=== PATIENT | female | born 1990 | race Caucasian/White ===

== ENCOUNTER → 2016-11-27 | Outpatient (CLI) | payer BC ==
--- NOTE | 2016-11-27 08:13 | DIAGNOSTIC IMAGING REPORT ---
(RENAL)RETROPERITON COMP CLINICAL HISTORY: 26 years-old Female presenting with Q63.9 Kidney anomaly, congenital. TECHNIQUE: Real-time grayscale and limited color Doppler ultrasound imaging of the kidneys and bladder was performed. COMPARISON: None. FINDINGS: The right and left renal moieties are fused across the midline. Overall symmetry of renal parenchyma and equally distributed on both sides of the midline, most consistent with horseshoe kidney configuration and crossed fused renal ectopia considered less likely. Normal perfusion of renal parenchyma on color Doppler. The kidney overall measures 11.9 cm in maximal sagittal dimension. No hydronephrosis. No convincing evidence of renal calculi. Bladder: No bladder wall thickening. Bilateral ureteral jets present. Other: None. IMPRESSION: 1. Findings most consistent with horseshoe kidney. No obstruction or renal calculi. Electronically signed by: Jovanny Christopher M.D. 11/27/2016 8:12 AM Dictated Date/Time: 11/27/2016 8:09 AM
== END | disposition home or self-care (01) ==
LOC: C.ULTR 07:40
PROVIDERS: ATTEND Obstetrics & Gynecology
DX: Q63.9 Congenital malformation of kidney, unspecified (principal)

== ENCOUNTER 2019-05-23 20:31 | Inpatient (IN) ==
[2019-05-23] MEDS ORDERED: BETAMETH SOD PHOS/ACETATE IA 6 MG/ML IM STA (20:46)
[2019-05-23 21:54] LABS: Hemoglobin 12.7 g/dL (12.0-16.0); Mean Corpuscular Hemoglobin 32.3 pg (25-34); Mean Corpuscular Hgb Conc 35.3 g/dL (32-36); Mean Corpuscular Volume 91.6 fL (80-100); Platelet Count 151 K/uL (130-400); RDW Coefficient of Variation 11.5 % (11.5-14.5); RDW Standard Deviation 38.8 fL (36.4-46.3); Red Blood Count 3.93 M/uL (4.2-5.4); White Blood Count 6.85 K/uL (4.8-10.8)
[2019-05-23 22:08] LABS: Albumin Level 2.1 gm/dl (3.4-5.0); BUN Creatinine Ratio 22.1 (10-20); Calcium 8.2 mg/dl (8.5-10.1); Creatinine Clr Calc Pharmacy 86.2 ml/min; Est GFR (African American) 88.2; Est GFR (Non-African American) 76.1; Potassium 3.7 mmol/L (3.5-5.1)
[2019-05-23 22:14] LABS: Albumin Globulin Ratio 0.6 (0.9-2); Bilirubin,Total 0.2 mg/dl (0.2-1); Globulin 3.5 gm/dl (2.5-4.0); Total Protein 5.6 gm/dl (6.4-8.2)
[2019-05-23] MEDS ORDERED: OXYTOCIN 30 UNITS/500 ML BAG IV PRN ×2 (22:35→23:14)
[2019-05-23] MEDS ORDERED: LABETALOL HCL IV 5 MG/ML 20ML IV STA ×2 (22:35→23:14)
[2019-05-23] MEDS ORDERED: DULOXETINE HCL 60 MG CAP PO STA (22:38)
[2019-05-23] MEDS ORDERED: MAGNESIUM SULFATE 4GM / WTR 100 ML BAG IV ONE (23:05)
--- NOTE | 2019-05-23 23:05 | History & Physical Report ---
Date of Service May 23, 2019 Assessment & Plan (1) Severe preeclampsia: (2) Uterine anomaly: Patient was initially an observation patient and her initial bps were elevated such that I suspected a diagnosis ultimately of mild preeclampsia. However will taking bps in appropriate position and rechecking bps with manual cuff, she clearly has bps that meet severe criteria and I recommend induction. Patient needs anti-htn medication now. 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 Still, i explained that her bps really require immediate attention and she agreed. I explained use of magnesium to decrease seizure threshold and use of pitocin for labor. I need to check her cervix to make induction plan. I reviewed her labs with her and her lfts, plts are normal. Her creat is 1. She is digesting information I have given her and I will return to room after labetalol given to examine her. She did receive betamethasone earlier this evening. Tried to answer her and spouse questions to the best of my ability. She will be admitted for rec induction. History of Present Illness Chief Complaint: asked to come to L&D for evaluation Primary Care Provider: Gavi Ernandez MD 28yo at 36 0/7 wks ega presents to L&D with above cc. I was called by my partner about 5pm today due to patient situation. She was seen for routine ob appt earlier today in office with only complaint of increased swelling in hands and legs. Her bp was normal but her urine dipstick for protein was +1. She had +1 edema and an u/s that showed EFW 10% (AC 21%). She had the u/s done due to arcuate uterus for size and positioning. She has a congenital uterine anomaly and horseshoe kidney. Her urine protein to creat ratio was 6.8, with creatinine of 0.9 and normal platelets and lfts. For the growth us parameters a doppler, dvp and nst were done and all were normal. My colleague had received the lab results right at 5pm and upon discussion we opted to call [facility] for curbside consult regarding these confusing results. When I did talk to [facility], they agreed the results were confusing and recommended patient come in for observation with serial bps, steroids and 24hr urine collection. I called the patient and explained that I rec she come to L&D for further evaluation of her findings earlier today and she agreed. She continues to deny CUNHA or visual change, no ruq pain. She does complain of swelling. Per office note pt was 1cm in office PNC c/b 1. anxiety, ocd on cymbalta 2. h/o CT infecion in past 3. Congenital uterine and kidney anomaly 4. SGA fetus (not quite IUGR) PNL rh pos, ri, gbs pending(taken today) OBH: g1 GYNH: h/o CT in past, nl paps, uterine anomaly as noted PMH: anxiety/OCD PSH: wisdom teeth SH: no tob/etoh/drugs FH: kojo anomaly in mother as noted. Allergies Allergy/AdvReac Type Severity Reaction Status Date / Time amoxicillin [From Amoxil] Allergy Rash Verified 05/23/19 21:01 Penicillins Allergy Rash Verified 05/23/19 21:01 Home Medications Home Medications Medication Instructions Recorded Confirmed Type calcium-vitamin D3-vitamin K 1 PO 11/25/18 05/23/19 History duloxetine 60 mg capsule,delayed 60 mg PO .TAKE 1 CAPSULE DAILY #90 11/25/18 05/23/19 History release cap prenat.vits,stephanie,bpk-nson-hfcva 1 tab PO DAILY 11/25/18 05/23/19 History Patient History Medical History (Updated 05/23/19 @ 23:00 by Gricelda Alcantara MD, FACOG) Anxiety History of OCD (obsessive compulsive disorder) Hx of chlamydia infection Kidney anomaly, congenital Horseshoe Uterine anomaly Arcuate Surgical History S/P wisdom tooth extraction Social History marital status: Feels Safe at Home: Yes Safety Concerns: Feels Safe At This Time Smoking Status: Never smoker Hx Alcohol Use: No Hx Substance Use: No Review of Systems no fever no abdominal pain and no change in stools no abnormal vaginal bleeding + swelling no headache(s) Physical Exam Constitutional: WD/WN, vitals as above well developed, well nourished and healthy appearing; no acute distress Respiratory: normal respiratory effort, lungs clear to auscultation Cardiovascular: Rate/Rhythm: regular rate and regular rhythm Gastrointestinal (Abdomen): Percussion/Palpation: abdomen soft (gravid, no ruq or epig tenderness); abdomen nontender Musculoskeletal: +1-2 peripheral edema. Neurologic: dtrs patellar +2, no clonus Psychiatric: A+Ox3, euthymic affect Genitourinary: OB Exam Monitor Tracing: + external FHT monitor used (135 mod variability), + external uterine monitor used (irreg), + category I and + normal FHT variability Results & Data Vital Signs (Past 12 Hours) Vital Signs Temp Pulse Resp BP 05/23/19 22:32 69 189/106 H 05/23/19 22:18 72 160/104 H 05/23/19 22:02 70 163/100 H 05/23/19 21:27 70 154/100 H 05/23/19 21:26 66 175/99 H 05/23/19 20:52 69 158/88 H 05/23/19 20:42 98.1 F 18 05/23/19 20:37 74 145/93 H Coding Level of Care Code None Diagnoses Severe preeclampsia O14.10 Uterine anomaly Q51.9
[2019-05-23] MEDS: LACTATED RINGER'S 1,000 ML IV PRN (23:51)
[2019-05-23] MEDS: MAGNESIUM SULFATE / WTR 40 GM/1,000 ML BAG IV SCH (23:52)
--- NOTE | 2019-05-24 01:01 | Labor Progress Brief Note ---
Date of Service May 24, 2019 Subjective patient denies complaints. she is agreeable to proceed with mckenzie ripening balloon. Assessment & Plan (1) Severe preeclampsia: (2) Encounter for induction of labor: attempt at mckenzie balloon but the bleeding was too significant. removed. rec proceeding with pitocin. magnesium infusing. pt had 2 doses iv labetalol and bps remaining below severe parameters. will monitor. nursing monitored pads james taylor i attended delivery and no further bleeding noted. Physical Exam Constitutional: WD/WN, vitals as above Genitourinary: OB Exam Monitor Tracing: + external FHT monitor used (130 mod variability), + external uterine monitor used (none), + category I and + normal FHT variability PROCEDURE: spec placed, ring forcep to ant lip, mckenzie through os easily, balloon inflated. spec removed. large amount maroon and red blood from catheter noted. balloon deflated and catheter removed. sve no change. spec placed again and no active bleeding. Results & Data Vital Signs (Past 12 Hours) Vital Signs Temp Pulse Resp BP Pulse Ox 05/24/19 00:54 73 98 05/24/19 00:49 69 98 05/24/19 00:45 18 05/24/19 00:44 72 97 05/24/19 00:43 68 145/91 H 05/24/19 00:39 68 98 05/24/19 00:38 68 146/89 H 05/24/19 00:34 79 97 05/24/19 00:33 67 139/83 05/24/19 00:30 18 05/24/19 00:29 67 155/91 H 05/24/19 00:24 69 152/92 H 05/24/19 00:18 65 160/98 H 05/24/19 00:17 68 169/100 H 05/24/19 00:15 75 18 174/103 H 05/24/19 00:08 74 178/107 H 05/24/19 00:04 72 166/102 H 05/24/19 00:00 18 05/23/19 23:59 73 143/93 H 05/23/19 23:53 73 150/93 H 05/23/19 23:48 76 156/91 H 05/23/19 23:45 18 05/23/19 23:44 76 142/85 H 05/23/19 23:39 69 144/85 H 05/23/19 23:33 76 146/85 H 05/23/19 23:28 74 151/97 H 05/23/19 23:23 68 147/93 H 05/23/19 23:16 61 183/100 H 05/23/19 23:09 70 168/105 H 05/23/19 23:03 78 173/106 H 05/23/19 22:58 74 153/95 H 05/23/19 22:55 75 174/107 H 05/23/19 22:46 74 189/106 H 05/23/19 22:32 69 189/106 H 05/23/19 22:18 72 160/104 H 05/23/19 22:02 70 163/100 H 05/23/19 21:27 70 154/100 H 05/23/19 21:26 66 175/99 H 05/23/19 20:52 69 158/88 H 05/23/19 20:42 98.1 F 18 05/23/19 20:37 74 145/93 H Coding Level of Care Code None Diagnoses Severe preeclampsia O14.10 Encounter for induction of labor Z34.90
[2019-05-24] MEDS ORDERED: LABETALOL HCL IV 5 MG/ML 20ML IV STA ×3 (04:37→10:51)
[2019-05-24] MEDS ORDERED: LABETALOL HCL IV 5 MG/ML 20ML IV ONE (04:40)
[2019-05-24 07:16] LABS: Hemoglobin 13.1 g/dL (12.0-16.0); Mean Corpuscular Hemoglobin 33.4 pg (25-34); Mean Corpuscular Hgb Conc 36.4 g/dL (32-36); Mean Corpuscular Volume 91.8 fL (80-100); Mean Platelet Volume 11.6 fL (7.4-10.4); Platelet Count 142 K/uL (130-400); RDW Coefficient of Variation 11.8 % (11.5-14.5); RDW Standard Deviation 39.7 fL (36.4-46.3); Red Blood Count 3.92 M/uL (4.2-5.4); White Blood Count 6.53 K/uL (4.8-10.8)
[2019-05-24 07:30] LABS: INR < 0.8 (0.9-1.1); Partial Thromboplastin Time 27.1 Seconds (21.0-31.0); Prothrombin Time < 8.7 Seconds (9.0-12.0)
[2019-05-24 08:00] LABS: Alanine Aminotransferase 26 U/L (12-78); Albumin Level 2.2 gm/dl (3.4-5.0); Alkaline Phosphatase 208 U/L (45-117); Aspartate Aminotransferase 36 U/L (15-37); Bilirubin Direct < 0.1 mg/dl (0-0.2); Bilirubin,Total 0.1 mg/dl (0.2-1); Creatinine Clr Calc Pharmacy 143.2 ml/min; Est GFR (African American) 93.8; Est GFR (Non-African American) 80.9; Magnesium Therapeutic L&D Only 6.2 mg/dL (4.0-8.0); Total Protein 5.8 gm/dl (6.4-8.2)
[2019-05-24] MEDS: CEFAZOLIN 2000MG 2,000 MG/15 ML SYR IV SCH ×2 (08:17→20:34)
--- NOTE | 2019-05-24 08:29 | Labor Progress Brief Note ---
Date of Service May 24, 2019 Subjective Reason For Note: Routine Evaluation denies pain, no n/v/ruq pain/epig pain. no mera. nausea better now that bp back up to her baseline. feels some ctx. Assessment & Plan (1) Severe preeclampsia: (2) Encounter for induction of labor: c/w pitocin. labs stable. urine output 300cc about every 2hr on bedpan. BPs labile. FHTs categ 1. Consider exam and arom. Kefzol infusing for gbs unknown. Aware I am leaving this am and will be discussing her care with Dr. Gomez. Physical Exam Constitutional: WD/WN, vitals as above Respiratory: normal respiratory effort, lungs clear to auscultation Cardiovascular: Rate/Rhythm: regular rate and regular rhythm Gastrointestinal (Abdomen): Percussion/Palpation: abdomen soft (gravid); abdomen nontender no ruq or epig tenderness Musculoskeletal: +2 edema Neurologic: DTRs +2, no clonus Genitourinary: OB Exam Monitor Tracing: + external FHT monitor used (120 mod variability), + external uterine monitor used (q2-3), + category I and + normal FHT variability Results & Data Vital Signs (Past 12 Hours) Vital Signs Temp Pulse Resp BP Pulse Ox 05/24/19 08:20 74 99 05/24/19 08:15 74 100 05/24/19 08:13 71 170/96 H 05/24/19 08:10 74 100 05/24/19 08:06 75 91 05/24/19 08:05 74 100 05/24/19 08:00 80 20 100 05/24/19 07:57 77 151/90 H 05/24/19 07:55 81 97 05/24/19 07:50 74 95 05/24/19 07:45 79 94 05/24/19 07:42 74 155/86 H 05/24/19 07:41 79 93 05/24/19 07:40 79 97 05/24/19 07:35 74 99 05/24/19 07:30 80 98 05/24/19 07:27 81 155/91 H 05/24/19 07:25 72 98 05/24/19 07:20 74 98 05/24/19 07:15 73 98 05/24/19 07:11 80 150/89 H 01/25/20 07:10 75 98 05/24/19 07:07 71 149/83 H 05/24/19 07:05 97.7 F 72 20 138/85 98 05/24/19 07:00 75 98 05/24/19 06:57 72 157/90 H 20 06:55 73 97 05/24/19 06:51 72 146/83 H 20 06:50 71 97 20 06:47 71 150/87 H 05/24/19 06:45 74 97 05/24/19 06:41 72 155/86 H 20 06:40 73 97 05/24/19 06:38 73 151/88 H 05/24/19 06:35 75 96 05/24/19 06:31 71 148/83 H 05/24/19 06:30 72 18 96 05/24/19 06:26 71 153/85 H 05/24/19 06:25 70 96 05/24/19 06:21 70 142/82 H 05/24/19 06:20 70 96 05/24/19 06:16 69 148/87 H 05/24/19 06:15 71 97 05/24/19 06:13 71 142/85 H 05/24/19 06:10 72 96 05/24/19 06:06 70 144/86 H 05/24/19 06:05 70 97 05/24/19 06:02 67 136/79 05/24/19 06:00 68 96 05/24/19 05:56 70 144/92 H 05/24/19 05:55 70 97 05/24/19 05:52 69 145/93 H 05/24/19 05:50 69 97 20 05:45 66 126/76 96 20 05:43 73 132/89 05/24/20 05:41 67 127/78 20 05:40 66 98 20 05:39 63 128/71 20 05:37 60 129/67 25/20 05:35 62 131/74 97 20 05:33 60 125/68 25/20 05:31 62 119/67 25/20 05:30 63 18 96 20 05:29 63 129/72 01/25/20 05:26 67 124/66 05/24/19 05:25 69 97 05/24/19 05:24 57 L 111/60 05/24/19 05:21 64 123/63 05/24/19 05:20 80 97 05/24/19 05:19 77 136/76 05/24/19 05:16 77 148/95 H 05/24/19 05:15 75 97 05/24/19 05:12 72 162/97 H 05/24/19 05:10 75 98 05/24/19 05:08 72 164/96 H 05/24/19 05:06 73 171/109 H 05/24/19 05:05 74 97 05/24/19 05:01 77 162/112 H 05/24/19 05:00 73 97 05/24/19 04:58 74 166/103 H 05/24/19 04:55 74 97 05/24/19 04:52 77 165/102 H 05/24/19 04:50 81 97 05/24/19 04:46 77 155/88 H 05/24/19 04:44 82 97 05/24/19 04:42 76 182/113 H 05/24/19 04:39 77 98 05/24/19 04:36 102 H 92 05/24/19 04:34 90 97 05/24/19 04:32 80 176/103 H 05/24/19 04:30 97.5 F L 18 05/24/19 04:29 82 97 05/24/19 04:24 76 97 05/24/19 04:19 75 98 05/24/19 04:14 78 98 05/24/19 04:09 77 98 05/24/19 04:06 75 171/98 H 05/24/19 04:04 75 98 05/24/19 03:59 77 98 05/24/19 03:54 79 97 05/24/19 03:49 79 97 05/24/19 03:44 74 98 05/24/19 03:39 81 97 05/24/19 03:36 74 164/93 H 05/24/19 03:34 77 97 05/24/19 03:30 18 05/24/19 03:29 84 97 05/24/19 03:24 77 97 05/24/19 03:19 80 97 01/25/20 03:14 76 97 01/25/20 03:09 76 97 20 03:04 81 155/82 H 97 05/24/19 03:00 18 05/24/19 02:59 76 96 20 02:54 83 96 20 02:49 77 138/81 96 20 02:44 76 97 20 02:39 77 97 20 02:34 77 143/81 H 97 05/24/19 02:30 18 20 02:29 79 97 20 02:24 77 98 20 02:19 72 98 20 02:18 70 139/79 20 02:16 75 162/100 H 05/24/19 02:14 75 97 05/24/19 02:09 83 97 05/24/19 02:04 78 97 20 01:59 85 98 20 01:54 77 97 05/24/19 01:49 74 97 05/24/19 01:45 70 137/81 20 01:44 70 97 20 01:39 79 97 05/24/20 01:34 74 98 20 01:30 98.1 F 05/24/19 01:29 73 98 20 01:24 72 98 05/24/20 01:19 73 98 20 01:15 69 149/95 H 20 01:14 73 98 05/24/20 01:09 73 98 20 01:04 77 97 05/24/19 01:00 18 20 00:59 74 97 20 00:54 73 98 25/20 00:49 69 98 25/20 00:45 18 05/24/20 00:44 72 97 05/24/20 00:43 68 145/91 H 20 00:39 68 98 25/20 00:38 68 146/89 H 20 00:34 79 97 25/20 00:33 67 139/83 25/20 00:30 18 05/24/20 00:29 67 155/91 H 20 00:24 69 152/92 H 05/24/19 00:18 65 160/98 H 05/24/19 00:17 68 169/100 H 05/24/19 00:15 75 18 174/103 H 05/24/19 00:08 74 178/107 H 05/24/19 00:04 72 166/102 H 05/24/19 00:00 18 05/23/19 23:59 73 143/93 H 05/23/19 23:53 73 150/93 H 05/23/19 23:48 76 156/91 H 05/23/19 23:45 18 05/23/19 23:44 76 142/85 H 05/23/19 23:39 69 144/85 H 05/23/19 23:33 76 146/85 H 05/23/19 23:28 74 151/97 H 05/23/19 23:23 68 147/93 H 05/23/19 23:16 61 183/100 H 05/23/19 23:09 70 168/105 H 05/23/19 23:03 78 173/106 H 05/23/19 22:58 74 153/95 H 05/23/19 22:55 75 174/107 H 05/23/19 22:46 74 189/106 H 05/23/19 22:32 69 189/106 H 05/23/19 22:18 72 160/104 H 05/23/19 22:02 70 163/100 H 05/23/19 21:27 70 154/100 H 05/23/19 21:26 66 175/99 H 05/23/19 20:52 69 158/88 H 05/23/19 20:42 98.1 F 18 05/23/19 20:37 74 145/93 H Coding Level of Care Code None Diagnoses Severe preeclampsia O14.10 Encounter for induction of labor Z34.90
--- NOTE | 2019-05-24 09:24 | Labor Progress Brief Note ---
Date of Service May 24, 2019 Subjective Reason For Note: Other (Change of shift) The patient is a 28-year-old 1 para 0 with an EDC of 20 June at 36+ weeks gestational age who was admitted for induction for preeclampsia with severe features. The patient was noted to have elevated protein in her urine. Blood pressures on labor and delivery were consistent with severe features. Laboratory values have shown a creatinine of approximately 0.95, the remainder of her PIH labs have been within normal limits. Attempt at cervical Escudero placement resulted in vaginal bleeding and the procedure was abandoned. The patient was started on Pitocin and is also on magnesium. Assessment & Plan (1) Severe preeclampsia: Physical Exam Genitourinary: Manual OB Exam: + cervical dilation 1 cm and 2 cm, + cervical effacement 70%, + station -2 and + amniotic fluid clear (Artificial rupture of membranes, intrauterine pressure catheter placed) OB Exam Monitor Tracing: + intra-uterine pressure catheter used, + category II and + normal FHT variability Results & Data Vital Signs (Past 12 Hours) Vital Signs Temp Pulse Resp BP Pulse Ox 05/24/19 09:16 76 93 05/24/19 09:15 74 99 05/24/19 09:12 76 165/101 H 05/24/19 09:11 78 92 05/24/19 09:10 75 100 05/24/19 09:05 79 100 05/24/19 09:00 74 20 100 05/24/19 08:57 75 145/87 H 93 05/24/19 08:55 74 100 05/24/19 08:50 74 100 05/24/19 08:45 71 100 05/24/19 08:43 73 90 05/24/19 08:42 72 173/98 H 05/24/19 08:40 75 100 05/24/19 08:35 73 97 05/24/19 08:30 74 18 100 05/24/19 08:29 73 160/88 H 05/24/19 08:25 80 100 05/24/19 08:20 74 99 05/24/19 08:15 74 100 05/24/19 08:13 71 170/96 H 05/24/19 08:10 74 100 05/24/19 08:06 75 91 05/24/19 08:05 74 100 05/24/19 08:00 80 20 100 05/24/19 07:57 77 151/90 H 05/24/19 07:55 81 97 05/24/19 07:50 74 95 05/24/19 07:45 79 94 05/24/19 07:42 74 155/86 H 05/24/19 07:41 79 93 05/24/19 07:40 79 97 05/24/19 07:35 74 99 05/24/19 07:30 80 98 05/24/19 07:27 81 155/91 H 05/24/19 07:25 72 98 05/24/19 07:20 74 98 05/24/19 07:15 73 98 05/24/19 07:11 80 150/89 H 05/24/19 07:10 75 98 05/24/19 07:07 71 149/83 H 05/24/19 07:05 97.7 F 72 20 138/85 98 05/24/19 07:00 75 98 05/24/19 06:57 72 157/90 H 05/24/19 06:55 73 97 05/24/19 06:51 72 146/83 H 05/24/19 06:50 71 97 05/24/19 06:47 71 150/87 H 05/24/19 06:45 74 97 05/24/19 06:41 72 155/86 H 05/24/19 06:40 73 97 05/24/19 06:38 73 151/88 H 05/24/19 06:35 75 96 05/24/19 06:31 71 148/83 H 05/24/19 06:30 72 18 96 05/24/19 06:26 71 153/85 H 05/24/19 06:25 70 96 05/24/19 06:21 70 142/82 H 05/24/19 06:20 70 96 05/24/19 06:16 69 148/87 H 05/24/19 06:15 71 97 05/24/19 06:13 71 142/85 H 05/24/19 06:10 72 96 05/24/19 06:06 70 144/86 H 05/24/19 06:05 70 97 05/24/19 06:02 67 136/79 05/24/19 06:00 68 96 05/24/19 05:56 70 144/92 H 05/24/19 05:55 70 97 05/24/19 05:52 69 145/93 H 05/24/19 05:50 69 97 05/24/19 05:45 66 126/76 96 05/24/19 05:43 73 132/89 05/24/19 05:41 67 127/78 05/24/19 05:40 66 98 05/24/19 05:39 63 128/71 05/24/19 05:37 60 129/67 05/24/19 05:35 62 131/74 97 05/24/19 05:33 60 125/68 05/24/19 05:31 62 119/67 05/24/19 05:30 63 18 96 05/24/19 05:29 63 129/72 05/24/19 05:26 67 124/66 05/24/19 05:25 69 97 05/24/19 05:24 57 L 111/60 05/24/19 05:21 64 123/63 05/24/19 05:20 80 97 05/24/19 05:19 77 136/76 05/24/19 05:16 77 148/95 H 05/24/19 05:15 75 97 05/24/19 05:12 72 162/97 H 05/24/19 05:10 75 98 05/24/19 05:08 72 164/96 H 05/24/19 05:06 73 171/109 H 05/24/19 05:05 74 97 05/24/19 05:01 77 162/112 H 05/24/19 05:00 73 97 05/24/19 04:58 74 166/103 H 05/24/19 04:55 74 97 05/24/19 04:52 77 165/102 H 05/24/19 04:50 81 97 05/24/19 04:46 77 155/88 H 05/24/19 04:44 82 97 05/24/19 04:42 76 182/113 H 05/24/19 04:39 77 98 05/24/19 04:36 102 H 92 05/24/19 04:34 90 97 05/24/19 04:32 80 176/103 H 05/24/19 04:30 97.5 F L 18 05/24/19 04:29 82 97 05/24/19 04:24 76 97 05/24/19 04:19 75 98 05/24/19 04:14 78 98 05/24/19 04:09 77 98 05/24/19 04:06 75 171/98 H 05/24/19 04:04 75 98 05/24/19 03:59 77 98 05/24/19 03:54 79 97 05/24/19 03:49 79 97 05/24/19 03:44 74 98 05/24/19 03:39 81 97 05/24/19 03:36 74 164/93 H 05/24/19 03:34 77 97 05/24/19 03:30 18 05/24/19 03:29 84 97 05/24/19 03:24 77 97 05/24/19 03:19 80 97 05/24/19 03:14 76 97 05/24/19 03:09 76 97 05/24/19 03:04 81 155/82 H 97 05/24/19 03:00 18 05/24/19 02:59 76 96 05/24/19 02:54 83 96 05/24/19 02:49 77 138/81 96 05/24/19 02:44 76 97 05/24/19 02:39 77 97 05/24/19 02:34 77 143/81 H 97 05/24/19 02:30 18 05/24/19 02:29 79 97 05/24/19 02:24 77 98 05/24/19 02:19 72 98 05/24/19 02:18 70 139/79 05/24/19 02:16 75 162/100 H 05/24/19 02:14 75 97 05/24/19 02:09 83 97 05/24/19 02:04 78 97 05/24/19 01:59 85 98 05/24/19 01:54 77 97 05/24/19 01:49 74 97 05/24/19 01:45 70 137/81 05/24/19 01:44 70 97 05/24/19 01:39 79 97 05/24/19 01:34 74 98 05/24/19 01:30 98.1 F 05/24/19 01:29 73 98 05/24/19 01:24 72 98 05/24/19 01:19 73 98 05/24/19 01:15 69 149/95 H 05/24/19 01:14 73 98 01/25/20 01:09 73 98 05/24/19 01:04 77 97 05/24/19 01:00 18 05/24/19 00:59 74 97 05/24/19 00:54 73 98 05/24/19 00:49 69 98 05/24/19 00:45 18 05/24/19 00:44 72 97 05/24/19 00:43 68 145/91 H 05/24/19 00:39 68 98 05/24/19 00:38 68 146/89 H 05/24/19 00:34 79 97 05/24/19 00:33 67 139/83 05/24/19 00:30 18 05/24/19 00:29 67 155/91 H 05/24/19 00:24 69 152/92 H 05/24/19 00:18 65 160/98 H 05/24/19 00:17 68 169/100 H 05/24/19 00:15 75 18 174/103 H 05/24/19 00:08 74 178/107 H 05/24/19 00:04 72 166/102 H 05/24/19 00:00 18 05/23/19 23:59 73 143/93 H 05/23/19 23:53 73 150/93 H 05/23/19 23:48 76 156/91 H 05/23/19 23:45 18 05/23/19 23:44 76 142/85 H 05/23/19 23:39 69 144/85 H 05/23/19 23:33 76 146/85 H 05/23/19 23:28 74 151/97 H 05/23/19 23:23 68 147/93 H 05/23/19 23:16 61 183/100 H 05/23/19 23:09 70 168/105 H 05/23/19 23:03 78 173/106 H 05/23/19 22:58 74 153/95 H 05/23/19 22:55 75 174/107 H 05/23/19 22:46 74 189/106 H 05/23/19 22:32 69 189/106 H 05/23/19 22:18 72 160/104 H 05/23/19 22:02 70 163/100 H 05/23/19 21:27 70 154/100 H 05/23/19 21:26 66 175/99 H Supervising Physician Co-Signing Physician Notes -Indications for induction reviewed with patient and her -Artificial rupture of membranes for clear fluid, intrauterine pressure catheter placed to monitor contractions -We will check serial magnesium levels to ensure therapeutic levels but no toxicity -Serial CBCs ordered to monitor platelets -All questions answered of the patient -Working for vaginal delivery Coding Level of Care Code None Diagnoses Severe preeclampsia O14.10
[2019-05-24] MEDS ORDERED: BUPIVACAINE 0.25% 30 ML VIAL ONE (10:57)
[2019-05-24] MEDS ORDERED: ePHEDrine sulfate 50 MG/ML AMP ONE (10:57)
[2019-05-24] MEDS ORDERED: fentaNYL citrate 100 MCG/2 ML VIAL ONE (10:57)
[2019-05-24] MEDS ORDERED: fentaNYL 2MCG/ML ROPIV 1.25MG/ML 100 ML BAG EPI ONE (10:57)
--- NOTE | 2019-05-24 11:02 | Labor Progress Brief Note ---
Date of Service May 24, 2019 Subjective Reason For Note: Requested By RN Elevated BP's with ctx's Assessment & Plan (1) Severe preeclampsia: - Tracing Cat II - pt uncomfortable with ctx's - BP trending up - will place epidural, then re-access BP - all questions answered of patient Results & Data Vital Signs (Past 12 Hours) Vital Signs Temp Pulse Resp BP Pulse Ox 05/24/19 10:57 77 157/96 H 100 05/24/19 10:52 77 97 05/24/19 10:47 72 100 05/24/19 10:43 71 167/96 H 05/24/19 10:42 70 100 05/24/19 10:37 70 100 05/24/19 10:32 73 98 05/24/19 10:30 71 20 90 05/24/19 10:27 72 178/105 H 100 05/24/19 10:22 73 100 05/24/19 10:17 73 171/96 H 100 05/24/19 10:13 71 185/110 H 05/24/19 10:12 71 100 05/24/19 10:08 72 90 05/24/19 10:05 70 100 05/24/19 10:01 70 91 05/24/19 10:00 67 20 100 05/24/19 09:57 75 142/98 H 05/24/19 09:56 81 93 05/24/19 09:55 81 97 05/24/19 09:50 69 100 05/24/19 09:45 72 100 05/24/19 09:42 72 157/90 H 05/24/19 09:40 77 100 05/24/19 09:36 76 94 05/24/19 09:35 75 98 05/24/19 09:30 73 20 100 05/24/19 09:27 71 166/93 H 05/24/19 09:25 72 100 05/24/19 09:22 74 94 05/24/19 09:20 73 98 05/24/19 09:16 76 93 05/24/19 09:15 74 99 05/24/19 09:12 76 165/101 H 05/24/19 09:11 78 92 05/24/19 09:10 75 100 05/24/19 09:05 79 100 05/24/19 09:00 74 20 100 05/24/19 08:57 75 145/87 H 93 05/24/19 08:55 74 100 05/24/19 08:50 74 100 05/24/19 08:45 71 100 05/24/19 08:43 73 90 05/24/19 08:42 72 173/98 H 05/24/19 08:40 75 100 05/24/19 08:35 73 97 05/24/19 08:30 74 18 100 05/24/19 08:29 73 160/88 H 05/24/19 08:25 80 100 05/24/19 08:20 74 99 05/24/19 08:15 74 100 05/24/19 08:13 71 170/96 H 05/24/19 08:10 74 100 05/24/19 08:06 75 91 05/24/19 08:05 74 100 05/24/19 08:00 80 20 100 05/24/19 07:57 77 151/90 H 05/24/19 07:55 81 97 05/24/19 07:50 74 95 05/24/19 07:45 79 94 05/24/19 07:42 74 155/86 H 05/24/19 07:41 79 93 05/24/19 07:40 79 97 05/24/19 07:35 74 99 05/24/19 07:30 80 98 05/24/19 07:27 81 155/91 H 05/24/19 07:25 72 98 05/24/19 07:20 74 98 05/24/19 07:15 73 98 05/24/19 07:11 80 150/89 H 05/24/19 07:10 75 98 05/24/19 07:07 71 149/83 H 05/24/19 07:05 97.7 F 72 20 138/85 98 05/24/19 07:00 75 98 05/24/19 06:57 72 157/90 H 05/24/19 06:55 73 97 05/24/19 06:51 72 146/83 H 05/24/19 06:50 71 97 05/24/19 06:47 71 150/87 H 05/24/19 06:45 74 97 20 06:41 72 155/86 H 05/24/19 06:40 73 97 05/24/19 06:38 73 151/88 H 05/24/19 06:35 75 96 05/24/19 06:31 71 148/83 H 05/24/19 06:30 72 18 96 05/24/19 06:26 71 153/85 H 05/24/19 06:25 70 96 05/24/19 06:21 70 142/82 H 05/24/19 06:20 70 96 05/24/19 06:16 69 148/87 H 05/24/19 06:15 71 97 05/24/19 06:13 71 142/85 H 05/24/19 06:10 72 96 05/24/19 06:06 70 144/86 H 05/24/19 06:05 70 97 05/24/19 06:02 67 136/79 05/24/19 06:00 68 96 05/24/19 05:56 70 144/92 H 05/24/19 05:55 70 97 05/24/19 05:52 69 145/93 H 05/24/19 05:50 69 97 05/24/19 05:45 66 126/76 96 05/24/19 05:43 73 132/89 05/24/19 05:41 67 127/78 05/24/19 05:40 66 98 05/24/19 05:39 63 128/71 05/24/19 05:37 60 129/67 05/24/19 05:35 62 131/74 97 05/24/19 05:33 60 125/68 05/24/19 05:31 62 119/67 20 05:30 63 18 96 05/24/19 05:29 63 129/72 05/24/19 05:26 67 124/66 05/24/19 05:25 69 97 05/24/19 05:24 57 L 111/60 05/24/19 05:21 64 123/63 05/24/19 05:20 80 97 05/24/19 05:19 77 136/76 05/24/19 05:16 77 148/95 H 05/24/19 05:15 75 97 05/24/19 05:12 72 162/97 H 05/24/19 05:10 75 98 05/24/19 05:08 72 164/96 H 05/24/19 05:06 73 171/109 H 05/24/19 05:05 74 97 05/24/19 05:01 77 162/112 H 05/24/19 05:00 73 97 05/24/19 04:58 74 166/103 H 05/24/19 04:55 74 97 05/24/19 04:52 77 165/102 H 05/24/19 04:50 81 97 05/24/19 04:46 77 155/88 H 05/24/19 04:44 82 97 05/24/19 04:42 76 182/113 H 05/24/19 04:39 77 98 05/24/19 04:36 102 H 92 05/24/19 04:34 90 97 05/24/19 04:32 80 176/103 H 05/24/19 04:30 97.5 F L 18 05/24/19 04:29 82 97 05/24/19 04:24 76 97 05/24/19 04:19 75 98 05/24/19 04:14 78 98 05/24/19 04:09 77 98 05/24/19 04:06 75 171/98 H 05/24/19 04:04 75 98 05/24/19 03:59 77 98 05/24/19 03:54 79 97 05/24/19 03:49 79 97 05/24/19 03:44 74 98 05/24/19 03:39 81 97 05/24/19 03:36 74 164/93 H 05/24/19 03:34 77 97 05/24/19 03:30 18 05/24/19 03:29 84 97 05/24/19 03:24 77 97 05/24/19 03:19 80 97 05/24/19 03:14 76 97 05/24/19 03:09 76 97 05/24/19 03:04 81 155/82 H 97 05/24/19 03:00 18 05/24/19 02:59 76 96 05/24/19 02:54 83 96 05/24/19 02:49 77 138/81 96 05/24/19 02:44 76 97 05/24/19 02:39 77 97 05/24/19 02:34 77 143/81 H 97 05/24/19 02:30 18 05/24/19 02:29 79 97 05/24/19 02:24 77 98 05/24/19 02:19 72 98 05/24/19 02:18 70 139/79 05/24/19 02:16 75 162/100 H 05/24/19 02:14 75 97 05/24/19 02:09 83 97 05/24/19 02:04 78 97 05/24/19 01:59 85 98 05/24/19 01:54 77 97 05/24/19 01:49 74 97 05/24/19 01:45 70 137/81 05/24/19 01:44 70 97 05/24/19 01:39 79 97 05/24/19 01:34 74 98 05/24/19 01:30 98.1 F 05/24/19 01:29 73 98 05/24/19 01:24 72 98 05/24/19 01:19 73 98 05/24/19 01:15 69 149/95 H 05/24/19 01:14 73 98 05/24/19 01:09 73 98 05/24/19 01:04 77 97 05/24/19 01:00 18 05/24/19 00:59 74 97 05/24/19 00:54 73 98 05/24/19 00:49 69 98 05/24/19 00:45 18 05/24/19 00:44 72 97 05/24/19 00:43 68 145/91 H 05/24/19 00:39 68 98 05/24/19 00:38 68 146/89 H 05/24/19 00:34 79 97 05/24/19 00:33 67 139/83 05/24/19 00:30 18 05/24/19 00:29 67 155/91 H 05/24/19 00:24 69 152/92 H 05/24/19 00:18 65 160/98 H 05/24/19 00:17 68 169/100 H 05/24/19 00:15 75 18 174/103 H 05/24/19 00:08 74 178/107 H 05/24/19 00:04 72 166/102 H 05/24/19 00:00 18 05/23/19 23:59 73 143/93 H 20 23:53 73 150/93 H 20 23:48 76 156/91 H 20 23:45 18 20 23:44 76 142/85 H 20 23:39 69 144/85 H 05/23/19 23:33 76 146/85 H 05/23/19 23:28 74 151/97 H 05/23/19 23:23 68 147/93 H 05/23/19 23:16 61 183/100 H 05/23/19 23:09 70 168/105 H 05/23/19 23:03 78 173/106 H Coding Level of Care Code None Diagnoses Severe preeclampsia O14.10
[2019-05-24] MEDS: LACTATED RINGER'S 1,000 ML IV PRN ×2 (11:08→15:29)
--- NOTE | 2019-05-24 11:10 | Anesthesiology Consultation ---
Date of Service May 24, 2019 Assessment & Plan (1) Encounter for pre-operative examination: History Height/Weight Height: 5 ft 5 in Weight: 174 kg Allergies Allergy/AdvReac Type Severity Reaction Status Date / Time amoxicillin [From Amoxil] Allergy Rash Verified 05/23/19 21:01 Penicillins Allergy Rash Verified 05/23/19 21:01 Medications Home Medications Medication Instructions Recorded Confirmed Last Taken duloxetine 60 mg capsule,delayed 60 mg PO .TAKE 1 CAPSULE DAILY #90 11/25/18 05/23/19 05/22/19 20:00 release cap prenat.vits,stephanie,[id number] 1 tab PO DAILY 11/25/18 05/23/19 05/22/19 20:00 Active Medications Generic Name Dose Route Start Last Admin Trade Name Freq PRN Reason Stop Dose Admin Lactated Ringer's 1,000 mls @ 125 mls/hr 05/23/19 22:35 05/24/19 11:08 Lr IV 05/25/19 22:34 999 mls/hr .Q8H PRN Administration L&D Protocol Protocol Magnesium Sulfate 40 gm in 1,000 mls @ 25 mls/hr 05/23/19 23:15 05/24/19 09:45 Magnesium Sulfate / Wtr IV 06/22/19 23:14 25 mls/hr .Q24H GRICELDA Infusion Oxytocin 30 units in 500 mls @ 17 mls/hr 05/23/19 23:14 05/24/19 08:20 Pitocin IV 05/25/19 23:13 1.02 units/hr .Q24H PRN 17 mls/hr Labor Induction/Augmentation Titration Protocol 1.02 UNITS/HR Cefazolin Sodium 2,000 mg in 15 mls @ 3.75 mls/min 05/24/19 05:30 05/24/19 08:17 Ancef 2000mg IV 06/03/19 05:29 3.75 mls/min Q8H GRICELDA Administration Past Medical History Medical History Anxiety History of OCD (obsessive compulsive disorder) Hx of chlamydia infection Kidney anomaly, 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
[2019-05-24 12:59] LABS: Hematocrit (blood only) 34.7 % (37-47); Hemoglobin 12.4 g/dL (12.0-16.0); Mean Corpuscular Hemoglobin 32.7 pg (25-34); Mean Corpuscular Hgb Conc 35.7 g/dL (32-36); Mean Corpuscular Volume 91.6 fL (80-100); Mean Platelet Volume 11.6 fL (7.4-10.4); Platelet Count 145 K/uL (130-400); RDW Coefficient of Variation 11.7 % (11.5-14.5); RDW Standard Deviation 39.4 fL (36.4-46.3); Red Blood Count 3.79 M/uL (4.2-5.4); White Blood Count 10.41 K/uL (4.8-10.8)
[2019-05-24] MEDS ORDERED: ONDANSETRON INJ 2 MG/ML 2 ML VIAL IV PRN (13:10)
[2019-05-24] MEDS ORDERED: NALOXONE HCL 0.4 MG/1 ML VIAL/CARP IV PRN (13:10)
[2019-05-24] MEDS ORDERED: NALOXONE HCL 1 MG in SODIUM CHLORIDE 0.9% 1000ML 1,000 ML IV PRN (13:10)
[2019-05-24] MEDS ORDERED: NALBUPHINE HCL INJ 10 MG/ML AMP IV PRN (13:10)
[2019-05-24] MEDS ORDERED: DiphenhydrAMINE HCL 50 MG/ML VIAL IV PRN (13:10)
[2019-05-24] MEDS ORDERED: fentaNYL 2MCG/ML ROPIV 1.25MG/ML 100 ML BAG EPI PRN (13:10)
[2019-05-24] MEDS ORDERED: ePHEDrine sulfate 50 MG/ML AMP IV PRN (13:10)
--- NOTE | 2019-05-24 14:00 | Labor Progress Brief Note ---
Date of Service May 24, 2019 Subjective Reason For Note: Requested By RN feeling pressure Assessment & Plan (1) Severe preeclampsia: - tracing Cat II - completely dilated - Mg level 6 - begin 2nd stage Physical Exam Genitourinary: OB Exam Monitor Tracing: + category II and + normal FHT variability Cervix: complete/ALEJANDRA/(+)2 Results & Data Vital Signs (Past 12 Hours) Vital Signs Temp Pulse Resp BP Pulse Ox 05/24/19 13:56 81 96 05/24/19 13:51 88 152/83 H 95 05/24/19 13:46 91 H 93 05/24/19 13:41 86 94 05/24/19 13:36 82 145/84 H 95 05/24/19 13:31 82 95 05/24/19 13:30 20 05/24/19 13:26 84 95 05/24/19 13:22 81 143/81 H 05/24/19 13:21 80 95 05/24/19 13:16 83 95 05/24/19 13:11 84 95 05/24/19 13:06 80 135/76 96 05/24/19 13:01 85 94 05/24/19 13:00 98.2 F 20 05/24/19 12:56 78 96 05/24/19 12:51 83 134/69 100 05/24/19 12:48 79 89 L 05/24/19 12:46 81 100 05/24/19 12:41 82 99 05/24/19 12:36 76 100 05/24/19 12:31 78 114/58 L 100 05/24/19 12:30 20 05/24/19 12:26 78 111/58 L 100 05/24/19 12:21 75 118/61 100 05/24/19 12:16 75 123/68 100 05/24/19 12:14 77 92 05/24/19 12:11 79 115/63 100 05/24/19 12:06 75 126/70 100 05/24/19 12:01 76 125/71 99 05/24/19 12:00 20 05/24/19 11:59 79 123/64 05/24/19 11:57 72 126/68 05/24/19 11:56 73 96 05/24/19 11:55 71 130/68 05/24/19 11:53 84 119/68 05/24/19 11:51 76 133/74 81 L 05/24/19 11:49 78 126/70 05/24/19 11:47 80 136/75 05/24/19 11:46 79 100 05/24/19 11:45 74 20 129/68 05/24/19 11:43 77 126/70 05/24/19 11:41 75 122/72 100 05/24/19 11:40 80 91 05/24/19 11:39 83 20 132/65 05/24/19 11:36 71 93 05/24/19 11:35 79 93 05/24/19 11:31 70 84 L 05/24/19 11:30 20 05/24/19 11:28 79 91 05/24/19 11:26 85 100 05/24/19 11:18 78 97 05/24/19 11:16 74 91 05/24/19 11:12 74 173/93 H 100 05/24/19 11:07 81 100 05/24/19 11:02 75 100 05/24/19 11:00 97.5 F L 20 05/24/19 10:57 77 157/96 H 100 05/24/19 10:52 77 97 05/24/19 10:47 72 100 05/24/19 10:43 71 167/96 H 05/24/19 10:42 70 100 05/24/19 10:37 70 100 05/24/19 10:32 73 98 05/24/19 10:30 71 20 90 05/24/19 10:27 72 178/105 H 100 05/24/19 10:22 73 100 05/24/19 10:17 73 171/96 H 100 05/24/19 10:13 71 185/110 H 05/24/19 10:12 71 100 05/24/19 10:08 72 90 05/24/19 10:05 70 100 05/24/19 10:01 70 91 05/24/19 10:00 67 20 100 05/24/19 09:57 75 142/98 H 05/24/19 09:56 81 93 05/24/19 09:55 81 97 05/24/19 09:50 69 100 05/24/19 09:45 72 100 05/24/19 09:42 72 157/90 H 05/24/19 09:40 77 100 05/24/19 09:36 76 94 05/24/19 09:35 75 98 05/24/19 09:30 73 20 100 05/24/19 09:27 71 166/93 H 05/24/19 09:25 72 100 05/24/19 09:22 74 94 05/24/19 09:20 73 98 05/24/19 09:16 76 93 05/24/19 09:15 74 99 05/24/19 09:12 76 165/101 H 05/24/19 09:11 78 92 05/24/19 09:10 75 100 05/24/19 09:05 79 100 05/24/19 09:00 74 20 100 05/24/19 08:57 75 145/87 H 93 05/24/19 08:55 74 100 05/24/19 08:50 74 100 05/24/19 08:45 71 100 05/24/19 08:43 73 90 05/24/19 08:42 72 173/98 H 05/24/19 08:40 75 100 05/24/19 08:35 73 97 05/24/19 08:30 74 18 100 05/24/19 08:29 73 160/88 H 05/24/19 08:25 80 100 05/24/19 08:20 74 99 05/24/19 08:15 74 100 05/24/19 08:13 71 170/96 H 05/24/19 08:10 74 100 05/24/19 08:06 75 91 05/24/19 08:05 74 100 05/24/19 08:00 80 20 100 05/24/19 07:57 77 151/90 H 05/24/19 07:55 81 97 05/24/19 07:50 74 95 05/24/19 07:45 79 94 05/24/19 07:42 74 155/86 H 05/24/19 07:41 79 93 05/24/19 07:40 79 97 05/24/19 07:35 74 99 05/24/19 07:30 80 98 05/24/19 07:27 81 155/91 H 05/24/19 07:25 72 98 05/24/19 07:20 74 98 05/24/19 07:15 73 98 05/24/19 07:11 80 150/89 H 05/24/19 07:10 75 98 05/24/19 07:07 71 149/83 H 05/24/19 07:05 97.7 F 72 20 138/85 98 05/24/19 07:00 75 98 05/24/19 06:57 72 157/90 H 05/24/19 06:55 73 97 05/24/19 06:51 72 146/83 H 05/24/19 06:50 71 97 05/24/19 06:47 71 150/87 H 05/24/19 06:45 74 97 05/24/19 06:41 72 155/86 H 05/24/19 06:40 73 97 05/24/19 06:38 73 151/88 H 05/24/19 06:35 75 96 05/24/19 06:31 71 148/83 H 05/24/19 06:30 72 18 96 05/24/19 06:26 71 153/85 H 05/24/19 06:25 70 96 05/24/19 06:21 70 142/82 H 05/24/19 06:20 70 96 05/24/19 06:16 69 148/87 H 05/24/19 06:15 71 97 05/24/19 06:13 71 142/85 H 05/24/19 06:10 72 96 05/24/19 06:06 70 144/86 H 05/24/19 06:05 70 97 05/24/19 06:02 67 136/79 05/24/19 06:00 68 96 05/24/19 05:56 70 144/92 H 05/24/19 05:55 70 97 05/24/19 05:52 69 145/93 H 05/24/19 05:50 69 97 05/24/19 05:45 66 126/76 96 20 05:43 73 132/89 20 05:41 67 127/78 20 05:40 66 98 20 05:39 63 128/71 20 05:37 60 129/67 05/24/20 05:35 62 131/74 97 20 05:33 60 125/68 25/20 05:31 62 119/67 20 05:30 63 18 96 20 05:29 63 129/72 05/24/19 05:26 67 124/66 05/24/19 05:25 69 97 05/24/19 05:24 57 L 111/60 05/24/19 05:21 64 123/63 05/24/19 05:20 80 97 05/24/19 05:19 77 136/76 05/24/19 05:16 77 148/95 H 05/24/19 05:15 75 97 05/24/19 05:12 72 162/97 H 05/24/19 05:10 75 98 05/24/19 05:08 72 164/96 H 05/24/19 05:06 73 171/109 H 05/24/19 05:05 74 97 05/24/19 05:01 77 162/112 H 05/24/19 05:00 73 97 05/24/19 04:58 74 166/103 H 05/24/19 04:55 74 97 05/24/19 04:52 77 165/102 H 05/24/19 04:50 81 97 05/24/19 04:46 77 155/88 H 05/24/19 04:44 82 97 05/24/19 04:42 76 182/113 H 05/24/19 04:39 77 98 05/24/19 04:36 102 H 92 05/24/19 04:34 90 97 05/24/19 04:32 80 176/103 H 05/24/19 04:30 97.5 F L 18 05/24/19 04:29 82 97 05/24/19 04:24 76 97 05/24/19 04:19 75 98 05/24/19 04:14 78 98 05/24/19 04:09 77 98 05/24/19 04:06 75 171/98 H 05/24/19 04:04 75 98 05/24/19 03:59 77 98 05/24/19 03:54 79 97 05/24/19 03:49 79 97 05/24/19 03:44 74 98 05/24/19 03:39 81 97 05/24/19 03:36 74 164/93 H 05/24/19 03:34 77 97 05/24/19 03:30 18 05/24/19 03:29 84 97 05/24/19 03:24 77 97 05/24/19 03:19 80 97 05/24/19 03:14 76 97 05/24/19 03:09 76 97 05/24/19 03:04 81 155/82 H 97 05/24/19 03:00 18 05/24/19 02:59 76 96 05/24/19 02:54 83 96 05/24/19 02:49 77 138/81 96 05/24/19 02:44 76 97 05/24/19 02:39 77 97 05/24/19 02:34 77 143/81 H 97 05/24/19 02:30 18 05/24/19 02:29 79 97 05/24/19 02:24 77 98 05/24/19 02:19 72 98 05/24/19 02:18 70 139/79 05/24/19 02:16 75 162/100 H 05/24/19 02:14 75 97 05/24/19 02:09 83 97 05/24/19 02:04 78 97 05/24/19 01:59 85 98 Coding Level of Care Code None Diagnoses Severe preeclampsia O14.10
--- NOTE | 2019-05-24 15:06 | Delivery Summary ---
Vaginal Delivery Summary Date of Service May 24, 2019 Vaginal Delivery Summary Findings: Viable Male , Apgars 4 and 6, cord gasses pending, delivered bu vacuum assist for Cat III tracing. Baby delivered over MLE and taken to resuscitation stand. Placenta delivered spontaneously. MLE repaired with 4-0 Vicryl. EBL 300 cc, sponge and needle count correct. Labor course: The patient is a 28-year-old 1 para 0 with an EDC of 20 June at 36+ weeks gestational age who was admitted for induction for severe preeclampsia. The patient was seen earlier in the day in the office for OB check. She was having an ultrasound done for estimated weight. Patient has a known bicornuate uterus. The ultrasound showed an estimated weight at the 10th percentile. +1 protein was noted at her office visit and a spot urine protein creatinine ratio was greater than 6 g. The patient had preeclamptic labs done which were within normal limits but she presented to labor and delivery for serial blood pressure measurements. While on labor and delivery the patient was having significantly elevated diastolics greater than 105 giving her a diagnosis of preeclampsia with severe features and induction was initiated. Prior to this the patient had had an unremarkable course. Her blood type was O+ antibody negative rubella immune hepatitis B negative she had a normal 1 hour Glucola x2 but did not have a third trimester beta strep culture. Because of the early gestational age the patient received a late Celestone 12 mg IM. She was also started on Ancef 1 g IV for penicillin allergy for unknown GBS status. An attempt was made at placement of a cervical [place] but profuse vaginal bleeding was noted and the procedure was abandoned. Patient was started on Pitocin per induction protocol. On the morning of delivery delivering physician assumed care for the patient. Cervix was 1 to 2 cm dilated and at that point she had artificial rupture of membranes for clear fluid. Intrauterine pressure catheter was placed and Pitocin was titrated to adequate labor. Because of the preeclampsia with severe features the patient was started on magnesium. The patient progressed into a regular labor pattern. She became uncomfortable anesthesia was consulted and an epidural was placed. Patient progressed to full dilatation. During her labor her tracing was felt to be category 2 with some decrease in variability felt to be secondary to the magnesium. With the beginning of her second stage the patient was an excellent pusher but immediate bradycardia insult resulted with the second stage. This did not resolve in between pushes. Because of the persistent now felt to be category 3 tracing, verbal consent was obtained for a vacuum extraction. Over the next 2 contractions the vertex was brought to the perineum and then the vacuum popped off. Patient was able to delivered spontaneously over a midline episiotomy. Cord was clamped and cut and the baby was taken to the resuscitation stand. Placenta was delivered spontaneously. Inspection of the perineum showed a midline episiotomy, this was repaired with 4-0 Vicryl. Estimated blood loss was 300 cc. Sponge and needle count was correct.
[2019-05-24 15:08] LABS: Base Excess Cord Venous Blood -6.8 mEq/L (-7.7-1.9); Cord Venous Blood HCO3 22 mmol/L (18.4-26.8); Cord Venous Blood PCO2 56 mmHg (30.4-57.2); Cord Venous Blood PO2 26 mmHg (14.1-43.3); Cord Venous Blood pH 7.21 (7.20-7.44)
[2019-05-24 15:15] LABS: Base Excess Cord Arterial Bld -7.8 mEq/L (-9-1.8); CO2 Cord Arterial Blood 67 mmHg (39.1-73.5); HCO3 Cord Arterial Blood 23 mmol/L (19.7-28.5); PO2 Cord Arterial Blood 24 mmHg (4.1-31.7); pH Cord Arterial Blood 7.15 (7.1-7.38)
[2019-05-24 15:16] LABS: O2 Saturation Cord Venous Bld < 60.0 % (<68)
[2019-05-24 15:17] LABS: Oxygen Sat Cord Arterial Blood < 60.0 % (<60)
--- NOTE | 2019-05-24 15:21 | Anesthesia Procedure Note ---
Date of Service May 24, 2019 Anesthesia Post Epidural Note Vital Signs Vital Signs: Temp Pulse Resp BP Pulse Ox 36.8 C 86 20 139/78 97 05/24/19 13:00 05/24/19 15:10 05/24/19 14:00 05/24/19 15:10 05/24/19 14:36 Pain Intensity Abdomen: Pain Intensity: 7 Notes Mental Status: alert / awake / arousable and participated in evaluation Patient Amnestic to Procedure: Yes Nausea / Vomiting: adequately controlled Pain: adequately controlled Airway Patency, RR, SpO2: stable & adequate BP & HR: stable & adequate Hydration State: stable & adequate Neuraxial Anesthesia: was administered and sensory block resolved Anesthetic Complications: no major complications apparent and Pt Satisfied with anesthetic care Epidural: Removed without complications and With tip intact Notes: The patient's was complicated with preeclampsia. The patient's platelets however remained stable in the 140s and 150s prior to epidural placement and removal. Patient's coagulation were also checked prior to placement and were not elevated. The patient's epidural was placed and removed without difficulty. The patient was informed about the risks of epidural placement including epidural abscess and hematoma. She was instructed both prior to epidural placement and again on removal that she is to go to the ED immediately if she experiences any loss of bowel or bladder control, sudden weakness or numbness, fever, abnormal drainage from the back, severe back pain or with any other concerns and to tell them she received an epidural. The patient understands and agrees.
[2019-05-24] MEDS: cloNIDine HCL 0.1 MG TAB PO PRN (16:36)
[2019-05-24 19:18] LABS: Hemoglobin 12.5 g/dL (12.0-16.0); Mean Corpuscular Hemoglobin 32.7 pg (25-34); Mean Corpuscular Hgb Conc 35.7 g/dL (32-36); Mean Corpuscular Volume 91.6 fL (80-100); Mean Platelet Volume 11.4 fL (7.4-10.4); Platelet Count 148 K/uL (130-400); RDW Coefficient of Variation 11.8 % (11.5-14.5); RDW Standard Deviation 39.6 fL (36.4-46.3); Red Blood Count 3.82 M/uL (4.2-5.4); White Blood Count 14.88 K/uL (4.8-10.8)
[2019-05-24] MEDS ORDERED: Nursing to Pharmacy Communication ONE (20:43)
[2019-05-24] MEDS ORDERED: BETAMETH SOD PHOS/ACETATE IA 6 MG/ML IM ONE (20:45)
[2019-05-24] MEDS: DULOXETINE HCL 60 MG CAP PO SCH (20:57)
[2019-05-24] MEDS: LABETALOL HCL 100 MG TAB PO SCH (20:57)
[2019-05-24] MEDS ORDERED: SUPERCREAM 0.870% 15 GM JAR EXT PRN (22:34)
[2019-05-24] MEDS ORDERED: ACETAMINOPHEN 325 MG TAB PO PRN (22:34)
[2019-05-24] MEDS ORDERED: BENZOCAINE 20% AER SPR 82.5 GM CAN EXT PRN (22:34)
[2019-05-24] MEDS ORDERED: HYDROCORTISONE ACETATE 25 MG SUPP PR PRN (22:34)
[2019-05-24] MEDS ORDERED: ACETAMINOPHEN W/CODEINE #3 1 TAB PO PRN (22:34)
[2019-05-24] MEDS ORDERED: OXYTOCIN 30 UNITS/500 ML BAG IV PRN (22:34)
[2019-05-24] MEDS ORDERED: DIPHTHERIA/TETANUS/PERTUSSIS 0.5 ML SYR/VIAL IM ONE (22:34)
[2019-05-24] MEDS: MAGNESIUM SULFATE / WTR 40 GM/1,000 ML BAG IV SCH (22:53)
[2019-05-25] MEDS: IBUPROFEN 600 MG TAB PO PRN ×4 (01:08→22:12)
[2019-05-25 01:15] LABS: Hematocrit (blood only) 35.1 % (37-47); Hemoglobin 12.4 g/dL (12.0-16.0); Mean Corpuscular Hemoglobin 32.4 pg (25-34); Mean Corpuscular Hgb Conc 35.3 g/dL (32-36); Mean Corpuscular Volume 91.6 fL (80-100); Mean Platelet Volume 11.5 fL (7.4-10.4); Platelet Count 155 K/uL (130-400); RDW Coefficient of Variation 11.9 % (11.5-14.5); RDW Standard Deviation 39.9 fL (36.4-46.3); Red Blood Count 3.83 M/uL (4.2-5.4); White Blood Count 11.87 K/uL (4.8-10.8)
[2019-05-25] MEDS: LACTATED RINGER'S 1,000 ML IV SCH ×2 (01:19→10:48)
[2019-05-25 07:33] LABS: Hematocrit (blood only) 32.8 % (37-47); Hemoglobin 11.6 g/dL (12.0-16.0); Mean Corpuscular Hemoglobin 32.7 pg (25-34); Mean Corpuscular Hgb Conc 35.4 g/dL (32-36); Mean Corpuscular Volume 92.4 fL (80-100); Mean Platelet Volume 11.3 fL (7.4-10.4); Platelet Count 142 K/uL (130-400); RDW Coefficient of Variation 11.7 % (11.5-14.5); RDW Standard Deviation 40.1 fL (36.4-46.3); Red Blood Count 3.55 M/uL (4.2-5.4); White Blood Count 10.84 K/uL (4.8-10.8)
[2019-05-25] MEDS: PRENATAL VITAMIN 1 TAB PO SCH (08:22)
[2019-05-25] MEDS: FERROUS SULFATE 325 MG TAB PO SCH (08:23)
[2019-05-25] MEDS: LABETALOL HCL 100 MG TAB PO SCH (08:23)
[2019-05-25] MEDS: DOCUSATE SODIUM 100 MG CAP PO SCH ×2 (08:23→20:53)
--- NOTE | 2019-05-25 08:28 | Obstetrical Progress Note ---
Date of Service May 25, 2019 Assessment & Plan (1) Severe preeclampsia: - patient diuresing - labs stable - BP still elevated, - will continue with labetalol bid, prn clonidine - will allow patient to eat - D/c Mg at 1430 - doing well Subjective Ambulation: limited ambulation Voiding: mckenzie catheter in place Diet Tolerance:: clear liquids Feeding Type:: breast feeding Physical Exam Constitutional WD/WN, vitals as above Gastrointestinal (Abdomen) Fundus firm below umbilicus Musculoskeletal No deep calf tenderness Results & Data Vital Signs (Past 12 Hours) Vital Signs Temp Pulse Resp BP 05/25/19 08:01 63 168/97 H 05/25/19 07:30 57 L 186/102 H 05/25/19 07:00 97.7 F 72 20 138/93 05/25/19 06:30 71 148/97 H 05/25/19 06:00 67 18 134/69 05/25/19 05:31 68 151/81 H 05/25/19 05:00 82 18 139/80 05/25/19 04:30 72 142/86 H 05/25/19 04:00 18 05/25/19 03:30 89 125/94 05/25/19 03:00 98.6 F 81 16 136/74 05/25/19 02:00 72 18 148/87 H 05/25/19 01:32 73 141/88 H 05/25/19 01:00 76 18 160/97 H 05/25/19 00:30 86 146/94 H 05/25/19 00:01 18 05/25/19 00:00 80 145/75 H 05/24/19 23:30 79 137/81 05/24/19 23:00 98.1 F 81 18 135/83 05/24/19 22:59 18 05/24/19 22:30 81 131/75 05/24/19 22:00 84 18 134/74 05/24/19 21:30 77 137/77 05/24/19 21:00 73 160/90 H
[2019-05-25] MEDS ORDERED: LABETALOL HCL 100 MG TAB PO ONE (10:15)
[2019-05-25] MEDS: cloNIDine HCL 0.1 MG TAB PO PRN (15:16)
[2019-05-25] MEDS ORDERED: bisacodyL 5 MG TABEC PO SCH (20:00)
[2019-05-25] MEDS: DULOXETINE HCL 60 MG CAP PO SCH (20:54)
[2019-05-25] MEDS: LABETALOL HCL 200 MG TAB PO SCH (21:00)
--- NOTE | 2019-05-26 06:20 | Obstetrical Progress Note ---
Date of Service May 26, 2019 Assessment & Plan (1) Status post vaginal delivery: 28 yo on PPD 2 after IOL for severe pre-eclampsia at 36 weeks. - GBS unknown s/p treatment with Ancef at delivery; Blood Type O+, Rubella immune - Vitals reviewed: over the last 24 hours highest systolic pressure 172, highest diastolic 111. BP currently 134/74 - despite treatment with high doses of labetalol 200mg, PO, BID and clonidine prn, patient's BPs remain labile. will continue to monitor BP today, as patient is not medically safe for discharge given labile BPs despite - After discharge will have [address] Gomez. (2) Severe preeclampsia: - over the last 24 hours highest systolic pressure 172, highest diastolic 111. - BP currently 134/74 - continue Labetolol 200mg BID, clonidine prn for BP control - Mag stopped 05/25; patient's energy level has improved - liver enzymes and platelets WNL 05/25 - patient asymptomatic Supervising Physician Co-Signing Physician Notes Resident Physician Supervision Note: I was present with Dr. Cantu during the history and exam. I discussed the case with the resident and agree with the findings and plan as documented in the note. Any exceptions or clarifications are listed here: BP's have been extremely labile, even on 200 bid labetalol and prn Clonidine. May need to increase labetalol to 300mg bid. Will continue hospitalization. Documented By: Timbo Gomez Jr, MD, FACOG Subjective Ambulation: ambulating normally Voiding: no voiding problems Passing Gas:: Yes Diet Tolerance:: regular diet Lochia:: Small Feeding Type:: breast feeding Review of Systems Constitutional: no fever, no chills and no sweats Eyes: no worsening vision Respiratory: no cough and no dyspnea Cardiovascular: no chest pain, no palpitations, no edema and no calf pain Gastrointestinal: no abdominal pain, no nausea and no vomiting Genitourinary: no dysuria and no urinary frequency Neurologic: no headache(s) Physical Exam Constitutional: WD/WN, vitals as above no acute distress Respiratory: normal respiratory effort, lungs clear to auscultation does not use accessory muscles Auscultation: no crackles, no rales, no rhonchi, no wheezes and no pleural rub Cardiovascular: Rate/Rhythm: regular rate and regular rhythm Heart Sounds: normal S1 and normal S2; no gallop, no murmur and no cardiac rub Extremities: no calf tenderness and no pedal edema Gastrointestinal (Abdomen): Inspection/Auscultation: normal bowel sounds; abdomen not distended Percussion/Palpation: abdomen soft Genitourinary: Uterus: fundus firm, palpable 2 cm below the umbilicus Results & Data Vital Signs (Past 12 Hours) Vital Signs Temp Pulse Resp BP Pulse Ox 05/26/19 03:30 18 134/74 05/26/19 00:30 36.9 C 18 142/79 H 05/25/19 20:30 37 C 71 20 149/89 H 96 05/25/19 19:45 67 153/95 H 05/25/19 19:40 66 165/96 H Resident Activity Tracking Resident Involvement: Resident Care Provided Care Provided: Adult Hospital Medicine
[2019-05-26] MEDS: PRENATAL VITAMIN 1 TAB PO SCH (09:58)
[2019-05-26] MEDS: cloNIDine HCL 0.1 MG TAB PO PRN ×2 (09:58→19:41)
[2019-05-26] MEDS: FERROUS SULFATE 325 MG TAB PO SCH (09:58)
[2019-05-26] MEDS: DOCUSATE SODIUM 100 MG CAP PO SCH ×3 (09:58→21:10)
[2019-05-26] MEDS: LABETALOL HCL 200 MG TAB PO SCH ×2 (09:58→21:11)
[2019-05-26] MEDS: IBUPROFEN 600 MG TAB PO PRN ×2 (09:59→16:15)
[2019-05-26] MEDS ORDERED: LABETALOL HCL 300 MG TAB PO SCH (21:00)
[2019-05-26] MEDS: DULOXETINE HCL 60 MG CAP PO SCH (21:10)
--- NOTE | 2019-05-27 07:15 | Obstetrical Progress Note ---
Date of Service May 27, 2019 Assessment & Plan (1) Status post vaginal delivery: 28 yo on PPD 3 after IOL for severe pre-eclampsia at 36 weeks. - GBS unknown s/p treatment with Ancef at delivery; Blood Type O+, Rubella immune - Vitals reviewed: BP currently 135/81; systolics have been as high as 177 in past 24 hours, diastolics as high as 102 - despite treatment with high doses of labetalol 200mg, PO, BID and clonidine prn, patient's BPs remain labile. will discharge today on labetolol on 200mg BID with close office follow up. Office check on 05/29/19 - After discharge will have [address] Gomez. (2) Severe preeclampsia: - over the last 24 hours highest systolic pressure 177, highest diastolic 102. - BP currently 135/81 - liver enzymes and platelets WNL 05/25 - patient asymptomatic - continue Labetolol 200mg BID Supervising Physician Co-Signing Physician Notes Resident Physician Supervision Note: I interviewed and examined the patient. Discussed with Dr. Cantu and agree with findings and plan as documented in the note. Any exceptions or clarifications are listed here: Induction for severe pet. Labile blood pressures. Most elevated blood pressure yesterday was at around 9 am and has been trending down since that time. Last dose of clonidine was last night about 7. Plan to monitor bps through lunch today. Plan to d/c home later today with labetolol 200mg. Plan f/u in office on . Discussed s/s of pet and what she needs to call about. Swelling +1-+2, Dtrs +1-2. currently denies s/s of pet. Documented By: Karla Nina MD, FACOG Subjective Ambulation: ambulating normally Voiding: no voiding problems Passing Gas:: Yes Diet Tolerance:: regular diet Lochia:: Small Feeding Type:: breast feeding Review of Systems Constitutional: no fever, no chills and no sweats Eyes: no worsening vision Respiratory: no cough and no dyspnea Cardiovascular: no chest pain, no palpitations, no edema and no calf pain Gastrointestinal: no nausea and no vomiting Genitourinary: no dysuria and no urinary frequency Neurologic: no headache(s) Physical Exam Constitutional: WD/WN, vitals as above no acute distress Respiratory: normal respiratory effort, lungs clear to auscultation does not use accessory muscles Auscultation: no crackles, no rales, no rhonchi, no wheezes and no pleural rub Cardiovascular: Rate/Rhythm: regular rate and regular rhythm Heart Sounds: normal S1 and normal S2; no gallop, no murmur and no cardiac rub Extremities: no calf tenderness and no pedal edema Gastrointestinal (Abdomen): Inspection/Auscultation: normal bowel sounds; abdomen not distended Percussion/Palpation: abdomen soft Genitourinary: Uterus: fundus firm, palpable 2 cm below the umbilicus Results & Data Vital Signs (Past 12 Hours) Vital Signs Temp Pulse Resp BP 05/27/19 04:59 74 18 135/81 05/27/19 02:02 71 18 160/83 H 05/26/19 23:15 36.7 C 65 18 157/95 H 05/26/19 20:54 70 18 139/82 05/26/19 19:18 36.9 C 71 18 161/83 H Resident Activity Tracking Resident Involvement: Resident Care Provided Care Provided: Adult Hospital Medicine
[2019-05-27] MEDS: FERROUS SULFATE 325 MG TAB PO SCH (08:03)
[2019-05-27] MEDS: DOCUSATE SODIUM 100 MG CAP PO SCH ×2 (08:03→20:27)
[2019-05-27] MEDS: PRENATAL VITAMIN 1 TAB PO SCH (08:03)
[2019-05-27] MEDS: IBUPROFEN 600 MG TAB PO PRN ×2 (08:04→15:14)
[2019-05-27] MEDS: LABETALOL HCL 200 MG TAB PO SCH (08:05)
[2019-05-27] MEDS: cloNIDine HCL 0.1 MG TAB PO PRN ×2 (08:31→16:57)
[2019-05-27 08:55] LABS: Basophils # (auto) 0.02 K/uL (0-0.2); Basophils % (auto) 0.2 %; Eosinophils # (auto) 0.27 K/uL (0-0.5); Eosinophils % (auto) 2.8 %; Hematocrit (blood only) 33.6 % (37-47); Hemoglobin 11.6 g/dL (12.0-16.0); Immature Granulocytes # (auto) 0.04 K/uL (0.00-0.02); Immature Granulocytes % (auto) 0.4 %; Lymphocytes # (auto) 1.74 K/uL (1.2-3.4); Lymphocytes % (auto) 18.3 %; Mean Corpuscular Hemoglobin 32.9 pg (25-34); Mean Corpuscular Volume 95.2 fL (80-100); Mean Platelet Volume 10.4 fL (7.4-10.4); Monocytes # (auto) 0.36 K/uL (0.11-0.59); Monocytes % (auto) 3.8 %; Neutrophils % (auto) 74.5 %; Platelet Count 146 K/uL (130-400); RDW Standard Deviation 41.4 fL (36.4-46.3); Red Blood Count 3.53 M/uL (4.2-5.4); White Blood Count 9.53 K/uL (4.8-10.8)
[2019-05-27 08:56] LABS: Mean Corpuscular Hgb Conc 34.5 g/dL (32-36)
[2019-05-27 09:12] LABS: BUN Creatinine Ratio 14.2 (10-20); Calcium 8.6 mg/dl (8.5-10.1); Creatinine Clr Calc Pharmacy 107.9 ml/min; Est GFR (African American) 115.5; Est GFR (Non-African American) 99.6; Potassium 3.6 mmol/L (3.5-5.1); Uric Acid 6.7 mg/dl (2.6-7.2)
[2019-05-27 09:15] LABS: Albumin Globulin Ratio 0.5 (0.9-2); Bilirubin,Total 0.2 mg/dl (0.2-1); Globulin 3.7 gm/dl (2.5-4.0); Total Protein 5.7 gm/dl (6.4-8.2)
--- NOTE | 2019-05-27 09:41 | Obstetrical Progress Note ---
Date of Service May 27, 2019 Subjective PPD#3, mild headache. Blood pressures Results & Data Vital Signs (Past 12 Hours) Vital Signs Temp Pulse Resp BP Pulse Ox 05/27/19 08:02 158/100 H 05/27/19 08:00 137/90 05/27/19 07:55 36.8 C 73 16 177/80 H 97 05/27/19 04:59 74 18 135/81 05/27/19 02:02 71 18 160/83 H 05/26/19 23:15 36.7 C 65 18 157/95 H PG Care Time/CCT Total # of Minutes Spent Total Time Spent with Patient: Total time spent is greater than 50% in coord ination of care (as documented) at patient's floor/unit and/or counseling patient: Coding
--- NOTE | 2019-05-27 09:47 | Obstetrical Progress Note ---
Date of Service May 27, 2019 Subjective PPD#3 after vacuum-assisted vaginal delivery and induction for severe preeclampsia, reports mild headache today. Blood pressures have remained labile - systolics 130s-170s/80-90s. Preeclampsia labs redrawn this morning and normal. Currently receiving labetalol 200mg BID with clonidine 0.1mg Q4h PRN. I called [facility] [place] for consultation to help manage BPs. Will remove discharge order and keep patient until BPs are better under control. Results & Data Vital Signs (Past 12 Hours) Vital Signs Temp Pulse Resp BP Pulse Ox 05/27/19 08:02 158/100 H 05/27/19 08:00 137/90 05/27/19 07:55 36.8 C 73 16 177/80 H 97 05/27/19 04:59 74 18 135/81 05/27/19 02:02 71 18 160/83 H 05/26/19 23:15 36.7 C 65 18 157/95 H PG Care Time/CCT Total # of Minutes Spent Total Time Spent with Patient: Total time spent is greater than 50% in coordination of care (as documented) at patient's floor/unit and/or counseling patient: Coding Level of Care Code None
[2019-05-27] MEDS ORDERED: LABETALOL HCL 100 MG TAB PO ONE (10:47)
--- NOTE | 2019-05-27 10:58 | Hospitalist Consultation ---
Date of Consultation May 27, 2019 Assessment & Plan (1) Severe preeclampsia: * Negative for HELLP. Had previously been found to have protein in her urine on sunday at 36 week check up where she was sent to ER and found to be hypertensive. Previously had received IV mag, labelolol, clonidine prn * BPs elevated to 160-170s/100s this morning with associated headache * Given labetalol 200mg PO BID, clonidine 0.1mg prn with improvement of BP to 128/75 currently * Will give 1x dose labetolol 100mg now, then increase to 300mg BID, as patient likely to have increase in BP once clonidine wears off * Continue to monitor closely (2) Anxiety: * Chronic. Stable * Continue home duloxetine 60mg (3) History of OCD (obsessive compulsive disorder): * Chronic. Stable. Per patient. (4) Uterine anomaly: * Bicornate uterus (5) Status post vaginal delivery: * PPD#3 s/p vaccuum assisted delivery at 36 weeks secondary to pre-eclamps ia * Pain control/DVT prophylaxis per primary team Thank you for allowing hospitalist service to participate in the care of Ms. Zhang. Hospitalist service will follow along. Supervising Physician Co-Signing Physician Notes PA Supervision Note: I personally saw and examined the patient. I verified all mckeon points and agree with SHERIN Gomez with the following exceptions and/or additions: Pt with mild headache, continued elevated BPs in the afternoon. Denies visual changes,, nausea, abd pain. Is making plenty of urine. Still with LE edema. Denies CP or SOB. No h/o HTN. Vitals reviewed NAD, AAOx3 PERRLA, EOMI, no nystagmus CN 2-12 intact, moves all extremities well, DTRs brisk and 2+ in UEs and LEs, no ankle clonus Ext 1+ pitting edema to knees bilat RRR 2/6 flow murmur LLSB CTAB no wcr Abd +BS soft NT ND, uterus U-2 cm Labs reviewed, preeclampsia labs negative 28 yo female now PPD#3 s/p after induction for severe preeclampsia, with persistent hypertension -will go ahead and increase labetalol further to 400mg po bid, continue clonidine prn Could add on Procardia or methyldopa if needed Discussed case with Dr. Glaser Will follow along History of Present Illness Reason for Consultation: Hypertension Requesting Physician: Dr Glaser Attending Physician: Gricelda Alcantara MD, FACOG History of Present Illness 28 year old white female with PMH significant for anxiety, OCD, bicornate uterus and horseshoe kidney presented to Labor and Delivery for severe pre-eclampsia a nd induction on Sunday05/23/19. Had previously received IV mag, labetolol and clonidine as needed for labile hypertension. Patient states she had a headache this morning, located frontally, without visual disturbance or aura. Patient states that after administration of BP medications she no longer has a headache. She denies ever having difficulty with her blood pressure during her and denies any history of elevated blood pressure. Denies any history of gestational diabetes. She denies any chest pain, shortness of breath, fever, chills, difficulty swallowing, hoarseness, abdominal pain, nausea, vomiting, constipation or diarrhea. Allergies Allergy/AdvReac Type Severity Reaction Status Date / Time amoxicillin [From Amoxil] Allergy Rash Verified 05/23/19 21:01 Penicillins Allergy Rash Verified 05/23/19 21:01 Home Medications Home Medications Medication Instructions Recorded Confirmed Type duloxetine 60 mg capsule,delayed 60 mg PO .TAKE 1 CAPSULE DAILY #90 11/25/18 05/23/19 History release cap prenat.vits,stephanie,[id number] 1 tab PO DAILY 11/25/18 05/23/19 History labetalol 200 mg PO BID 30 Days #60 tab 05/27/19 Rx Patient History Medical History Anxiety History of OCD (obsessive compulsive disorder) Hx of chlamydia infection Kidney anomaly, congenital Horseshoe Uterine anomaly Arcuate Surgical History S/P wisdom tooth extraction Family History Brother Hypertension Social History 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: Khmer 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 Beliefs That Will Affect Care: None marital status: Current Living Situation: Spouse Feels Safe at Home: Yes Smoking Status: Never smoker Hx Alcohol Use: No Hx Substance Use: No Review of Systems Review of Systems: All systems reviewed & are unremarkable except as noted in HPI & below Physical Exam Constitutional: WD/WN, vitals as above no acute distress Eyes: + anicteric sclerae and PERRL Neck: trachea midline, no thyromegaly Respiratory: normal respiratory effort, lungs clear to auscultation Cardiovascular: Rate/Rhythm: regular rate and regular rhythm Heart Sounds: normal S1, normal S2 and + murmur Extremities: + edema (1+ pitting edema bilateral lower extremities); no calf tenderness Gastrointestinal (Abdomen): normal bowel sounds, soft, nontender, no hepatosplenomegaly fundus firm, palpable approximately 1-2 cm below the umbilicus Musculoskeletal: no cyanosis or clubbing, extremities motor strength 5/5 Skin: no rashes, warm and dry Neurologic: PERRL, EOMI, accommodation nl, no face palsy, no dysarthria Psychiatric: A+Ox3, euthymic affect Lymphatic: no cervical or axillary lymphadenopathy Results & Data Vital Signs (Past 12 Hours) Vital Signs Temp Pulse Resp BP Pulse Ox 05/27/19 10:01 128/75 05/27/19 10:00 135/82 05/27/19 08:02 158/100 H 05/27/19 08:00 137/90 05/27/19 07:55 36.8 C 73 16 177/80 H 97 05/27/19 04:59 74 18 135/81 05/27/19 02:02 71 18 160/83 H 05/26/19 23:15 36.7 C 65 18 157/95 H Laboratory Results 05/27/19 05/27/19 Range/Units 08:42 08:42 WBC 9.53 (4.8-10.8) K/uL RBC 3.53 L (4.2-5.4) M/uL Hgb 11.6 L (12.0-16.0) g/dL Hct 33.6 L (37-47) % MCV 95.2 (80-100) fL MCH 32.9 (25-34) pg MCHC 34.5 (32-36) g/dL RDW Std Deviation 41.4 (36.4-46.3) fL RDW Coeff of Adelina 12.0 (11.5-14.5) % Plt Count 146 (130-400) K/uL MPV 10.4 (7.4-10.4) fL Immature Gran % (Auto) 0.4 % Neut % (Auto) 74.5 % Lymph % (Auto) 18.3 % [place] % (Auto) 3.8 % Eos % (Auto) 2.8 % Baso % (Auto) 0.2 % Immature Gran # (Auto) 0.04 H (0.00-0.02) K/uL Neut # (Auto) 7.10 H (1.4-6.5) K/uL Lymph # (Auto) 1.74 (1.2-3.4) K/uL [place] # (Auto) 0.36 (0.11-0.59) K/uL Eos # (Auto) 0.27 (0-0.5) K/uL Baso # (Auto) 0.02 (0-0.2) K/uL Sodium 139 (136-145) mmol/L Potassium 3.6 (3.5-5.1) mmol/L Chloride 105 (98-107) mmol/L Carbon Dioxide 31 (21-32) mmol/L Anion Gap 4.0 (3-11) BUN 11 (7-18) mg/dl Creatinine 0.80 (0.6-1.2) mg/dl Est Cr Clr Drug Dosing 107.9 ml/min Est GFR ( Amer) 115.5 Est GFR (Non-Af Amer) 99.6 BUN/Creatinine Ratio 14.2 (10-20) Glucose 87 (70-99) mg/dl Uric Acid 6.7 (2.6-7.2) mg/dl Calcium 8.6 (8.5-10.1) mg/dl Total Bilirubin 0.2 (0.2-1) mg/dl AST 38 H (15-37) U/L ALT 27 (12-78) U/L Alkaline Phosphatase 146 H (45-117) U/L Total Protein 5.7 L (6.4-8.2) gm/dl Albumin 2.0 L (3.4-5.0) gm/dl Globulin 3.7 (2.5-4.0) gm/dl Albumin/Globulin Ratio 0.5 L (0.9-2) PG Care Time/CCT Total # of Minutes Spent Total Time Spent with Patient: Total time spent is greater than 50% in coordination of care (as documented) at patient's floor/unit and/or counseling patient: Coding Level of Care Code 18468 Inpt Consult Level 3 Diagnoses Severe preeclampsia O14.10 Anxiety F41.9 History of OCD (obsessive compulsive disorder) Z86.59 Uterine anomaly Q51.9 Status post vaginal delivery
[2019-05-27] MEDS ORDERED: LABETALOL HCL 200 MG TAB PO ONE (18:30)
[2019-05-27] MEDS: DULOXETINE HCL 60 MG CAP PO SCH (20:46)
[2019-05-27] MEDS ORDERED: LABETALOL HCL 300 MG TAB PO SCH (21:00)
[2019-05-28 06:23] LABS: Basophils # (auto) 0.02 K/uL (0-0.2); Basophils % (auto) 0.2 %; Eosinophils % (auto) 3.5 %; Hematocrit (blood only) 33.6 % (37-47); Hemoglobin 11.7 g/dL (12.0-16.0); Immature Granulocytes # (auto) 0.04 K/uL (0.00-0.02); Immature Granulocytes % (auto) 0.5 %; Lymphocytes # (auto) 1.98 K/uL (1.2-3.4); Lymphocytes % (auto) 23.3 %; Mean Corpuscular Hemoglobin 32.9 pg (25-34); Mean Corpuscular Hgb Conc 34.8 g/dL (32-36); Mean Corpuscular Volume 94.4 fL (80-100); Mean Platelet Volume 10.4 fL (7.4-10.4); Monocytes # (auto) 0.52 K/uL (0.11-0.59); Monocytes % (auto) 6.1 %; Neutrophils # (auto) 5.62 K/uL (1.4-6.5); Neutrophils % (auto) 66.4 %; Platelet Count 173 K/uL (130-400); RDW Standard Deviation 40.5 fL (36.4-46.3); Red Blood Count 3.56 M/uL (4.2-5.4); White Blood Count 8.48 K/uL (4.8-10.8)
--- NOTE | 2019-05-28 06:29 | Obstetrical Progress Note ---
Date of Service May 28, 2019 Assessment & Plan (1) Status post vaginal delivery: 28 yo on PPD 4 after IOL for severe pre-eclampsia at 36 weeks. - GBS unknown s/p treatment with Ancef at delivery; Blood Type O+, Rubella immune - Vitals reviewed: BP currently 151/89; systolics have been as high as 171 in past 24 hours, diastolics as high as 101 - despite treatment with high doses of labetalol 400mg, PO, BID and clonidine prn, patient's BPs remain labile. Continue to monitor - After discharge will have [address] Gomez. (2) Severe preeclampsia: - over the last 24 hours highest systolic pressure 177, highest diastolic 102. - BP currently 151/89 - liver enzymes and platelets WNL 05/25 - patient asymptomatic - increased Labetolol to 400mg BID; clonidine 0.4mg prn (last dose 5am 05/27) Supervising Physician Co-Signing Physician Notes Resident Physician Supervision Note: I was present with Dr. Cantu during the history and exam. I discussed the case with the resident and agree with the findings and plan as documented in the note. Any exceptions or clarifications are listed here: PPD#4 doing well , however blood pressures have remained elevated. Preeclampsia labs yesterday were normal. Appreciate medicine consultation - she is now taking 400mg BID of labetalol with clonidine PRN if BPs are elevated. Overnight, she has maintained in the 150s/90s. Discussion yesterday from medicine was possibly adding a calcium channel melody if she starts showing elevated BPs again. Will monitor BPs today when she is up and moving, with this possibility in mind. She is looking forward to going home as soon as BP is under control. Hopefully this will be today. Documented By: Michelle Glaser DO Subjective Ambulation: ambulating normally Voiding: no voiding problems Passing Gas:: Yes Diet Tolerance:: regular diet Lochia:: Small Feeding Type:: breast feeding Review of Systems Constitutional: no fever, no chills and no sweats Eyes: no worsening vision Respiratory: no cough and no dyspnea Cardiovascular: no chest pain, no palpitations, no edema and no calf pain Gastrointestinal: no nausea and no vomiting Genitourinary: no dysuria and no urinary frequency Neurologic: no headache(s) Physical Exam Constitutional: WD/WN, vitals as above no acute distress Respiratory: normal respiratory effort, lungs clear to auscultation does not use accessory muscles Auscultation: no crackles, no rales, no rhonchi, no wheezes and no pleural rub Cardiovascular: Rate/Rhythm: regular rate and regular rhythm Heart Sounds: normal S1 and normal S2; no gallop, no murmur and no cardiac rub Extremities: no calf tenderness and no pedal edema Gastrointestinal (Abdomen): Inspection/Auscultation: normal bowel sounds; abdomen not distended Percussion/Palpation: abdomen soft Genitourinary: Uterus: fundus firm, palpable 2 cm below the umbilicus Results & Data Vital Signs (Past 12 Hours) Vital Signs Temp Pulse Resp BP Pulse Ox 05/28/19 04:30 36.6 C 74 16 151/89 H 98 05/27/19 23:30 36.8 C 61 20 157/94 H 95 05/27/19 21:12 36.7 C 66 20 156/96 H 96 Resident Activity Tracking Resident Involvement: Resident Care Provided Care Provided: Adult Hospital Medicine
[2019-05-28 06:54] LABS: Alanine Aminotransferase 63 U/L (12-78); Aspartate Aminotransferase 74 U/L (15-37); BUN Creatinine Ratio 17.1 (10-20); Bilirubin Direct < 0.1 mg/dl (0-0.2); Blood Urea Nitrogen 12 mg/dl (7-18); Calcium 8.7 mg/dl (8.5-10.1); Carbon Dioxide 29 mmol/L (21-32); Chloride 106 mmol/L (98-107); Creatinine Clr Calc Pharmacy 121.6 ml/min; Est GFR (African American) 133.4; Est GFR (Non-African American) 115.1; Glucose 87 mg/dl (70-99); Potassium 3.8 mmol/L (3.5-5.1); Sodium 139 mmol/L (136-145)
[2019-05-28 06:57] LABS: Alkaline Phosphatase 148 U/L (45-117); Bilirubin,Total 0.2 mg/dl (0.2-1); Total Protein 5.6 gm/dl (6.4-8.2)
[2019-05-28] MEDS ORDERED: NIFEdipine EXTENDED REL 30 MG TABCR PO STA (07:48)
[2019-05-28] MEDS: cloNIDine HCL 0.1 MG TAB PO PRN (08:55)
[2019-05-28] MEDS: LABETALOL HCL 200 MG TAB PO SCH ×2 (08:55→20:31)
[2019-05-28] MEDS: PRENATAL VITAMIN 1 TAB PO SCH (08:56)
[2019-05-28] MEDS: FERROUS SULFATE 325 MG TAB PO SCH (08:56)
[2019-05-28] MEDS: DOCUSATE SODIUM 100 MG CAP PO SCH ×2 (08:56→20:31)
[2019-05-28] MEDS: IBUPROFEN 600 MG TAB PO PRN (08:57)
--- NOTE | 2019-05-28 15:50 | Hospitalist Progress Note ---
Date of Service May 28, 2019 Assessment & Plan (1) Severe preeclampsia: * Negative for HELLP. Had previously been found to have protein in her urine on sunday at 36 week check up where she was sent to ER and found to be hypertensive. Previously had received IV mag, labelolol, clonidine prn * BPs elevated to 160-170s/100s morning of 05/27 with associated headache. Given labetalol 200mg PO BID, clonidine 0.1mg prn with imprvement of BP to 128/75 . BPs continued to be significanlty elevated at 170s/110. Increased labetolol to 400mg PO BID. Clonidine prn * BPs continue to be labile. 151/89 this morning with elevation to 172/101 * Given Clonidine x 1 on 05/28. Over the past 24 hours BPs as high as 170s/102 with elevation up to 171/110 this afternoon * Will continue labetolol, add 30mg procardia XL * Continue to monitor this afternoon/evening -- if patient to be discharged if BP stablizes, would need close BP check -- rec tomorrow AM in office if possible (2) Anxiety: * Chronic. Stable * Continue home duloxetine 60mg (3) History of OCD (obsessive compulsive disorder): * Chronic. Stable. Per patient. (4) Uterine anomaly: * Bicornate uterus (5) Status post vaginal delivery: * PPD#4 s/p vaccuum assisted delivery at 36 weeks secondary to pre- eclampsia * Pain control/DVT prophylaxis per primary team Thank you for allowing hospitalist service to participate in the care of Ms. Zhang. Hospitalist service will follow along if patient remains inpatient. Supervising Physician Co-Signing Physician Notes SHERIN Supervision Note: I did not personally see or examine the patient today, but I verified all mckeon points of SHERIN Gomez's assessment and plan with the following exceptions/additions: None Subjective Patient evaluated this afternoon. Tearful regarding the thought of not being able to be discharged today. Discussed the addition of procardia to better control BPs. If better controlled this evening, discussed need to have close follow up in the next day to have BP checked. Still admits to some puffiness in her legs. Agreeable to stockings in the meantime. Patient agreeable to plan. Denies any headache, visual changes, stiff neck, chest pain, shortness of breath, abdominal pain, n/v/d/c. Review of Systems Review of Systems: All systems reviewed & are unremarkable except as noted in HPI & below Physical Exam Constitutional: WD/WN, vitals as above no acute distress Eyes: + anicteric sclerae and PERRL ENMT: external ear and nose normal, oropharynx normal Neck: trachea midline, no thyromegaly Respiratory: normal respiratory effort, lungs clear to auscultation Cardiovascular: Rate/Rhythm: regular rate and regular rhythm Heart Sounds: normal S1, normal S2 and + murmur (flow murmur, best appreciated LUSB) Extremities: + edema (1+ pitting edema bilateral lower extremities); no calf tenderness Gastrointestinal (Abdomen): normal bowel sounds, soft, nontender, no hepatosplenomegaly Musculoskeletal: no cyanosis or clubbing, extremities motor strength 5/5 Skin: no rashes, warm and dry Neurologic: PERRL, EOMI, accommodation nl, no face palsy, no dysarthria CN's II-XI intact bilaterally Psychiatric: A+Ox3, euthymic affect Genitourinary: fundus 2cm under umbilicus Lymphatic: no cervical or axillary lymphadenopathy Results & Data Vital Signs (Past 12 Hours) Vital Signs Temp Pulse Pulse Resp BP BP Pulse Ox 05/28/19 15:06 36.7 C 69 20 171/110 H 05/28/19 14:10 36.6 C 68 20 152/91 H 99 05/28/19 12:00 36.4 C L 64 18 158/100 H 97 05/28/19 11:00 36.7 C 76 18 142/84 H 96 05/28/19 08:02 36.7 C 62 18 155/96 H 05/28/19 08:00 172/101 H 05/28/19 04:30 36.6 C 74 16 151/89 H 98 Laboratory Results 05/28/19 05/28/19 Range/Units 05:49 05:49 WBC 8.48 (4.8-10.8) K/uL RBC 3.56 L (4.2-5.4) M/uL Hgb 11.7 L (12.0-16.0) g/dL Hct 33.6 L (37-47) % MCV 94.4 (80-100) fL MCH 32.9 (25-34) pg MCHC 34.8 (32-36) g/dL RDW Std Deviation 40.5 (36.4-46.3) fL RDW Coeff of Adelina 12.0 (11.5-14.5) % Plt Count 173 (130-400) K/uL MPV 10.4 (7.4-10.4) fL Immature Gran % (Auto) 0.5 % Neut % (Auto) 66.4 % Lymph % (Auto) 23.3 % [place] % (Auto) 6.1 % Eos % (Auto) 3.5 % Baso % (Auto) 0.2 % Immature Gran # (Auto) 0.04 H (0.00-0.02) K/uL Neut # (Auto) 5.62 (1.4-6.5) K/uL Lymph # (Auto) 1.98 (1.2-3.4) K/uL [place] # (Auto) 0.52 (0.11-0.59) K/uL Eos # (Auto) 0.30 (0-0.5) K/uL Baso # (Auto) 0.02 (0-0.2) K/uL Sodium 139 (136-145) mmol/L Potassium 3.8 (3.5-5.1) mmol/L Chloride 106 (98-107) mmol/L Carbon Dioxide 29 (21-32) mmol/L Anion Gap 4.0 (3-11) BUN 12 (7-18) mg/dl Creatinine 0.71 (0.6-1.2) mg/dl Est Cr Clr Drug Dosing 121.6 ml/min Est GFR ( Amer) 133.4 Est GFR (Non-Af Amer) 115.1 BUN/Creatinine Ratio 17.1 (10-20) Glucose 87 (70-99) mg/dl Calcium 8.7 (8.5-10.1) mg/dl Total Bilirubin 0.2 (0.2-1) mg/dl Direct Bilirubin < 0.1 (0-0.2) mg/dl AST 74 H (15-37) U/L ALT 63 (12-78) U/L Alkaline Phosphatase 148 H (45-117) U/L Total Protein 5.6 L (6.4-8.2) gm/dl Albumin 2.0 L (3.4-5.0) gm/dl PG Care Time/CCT Total # of Minutes Spent Total Time Spent with Patient: Total time spent is greater than 50% in coordination of care (as documented) at patient's floor/unit and/or counseling patient: Coding Level of Care Code 24013 Subseq Hosp Care Lvl 2 Diagnoses Severe preeclampsia O14.10 Anxiety F41.9 History of OCD (obsessive compulsive disorder) Z86.59 Uterine anomaly Q51.9 Status post vaginal delivery
[2019-05-28] MEDS ORDERED: NIFEdipine EXTENDED REL 30 MG TABCR PO ONE (16:00)
--- NOTE | 2019-05-28 16:37 | Obstetrical Progress Note ---
Date of Service May 28, 2019 Assessment & Plan (1) Severe preeclampsia: will add nifedipine 30mg XL continue labetalol 400mg bid BP check on 05/29 at 4:[address] Alcantara as long as BP is decreased with the addition of Nifedipine. will also monitor for increased headaches on Nifedipine. Present on Admission?: Yes Subjective Ambulation: ambulating normally Voiding: no voiding problems Passing Gas:: Yes Diet Tolerance:: regular diet patient asymptomatic with BP of 170/110. Pamela Gomez evaluated patient for BP> Physical Exam Constitutional well developed and well nourished; no acute distress Psychiatric A+Ox3, euthymic affect Results & Data Vital Signs (Past 12 Hours) Vital Signs Temp Pulse Resp BP Pulse Ox 05/28/19 15:06 98.1 F 69 20 171/110 H 05/28/19 14:10 97.9 F 68 20 152/91 H 99 05/28/19 12:00 97.5 F L 64 18 158/100 H 97 05/28/19 11:00 98.1 F 76 18 142/84 H 96 05/28/19 08:02 98.1 F 62 18 155/96 H 05/28/19 08:00 172/101 H
[2019-05-28] MEDS: DULOXETINE HCL 60 MG CAP PO SCH (20:31)
[2019-05-29] MEDS: IBUPROFEN 600 MG TAB PO PRN ×2 (01:45→08:54)
--- NOTE | 2019-05-29 07:11 | Obstetrical Progress Note ---
Date of Service May 29, 2019 Assessment & Plan (1) Status post vaginal delivery: 28 yo on PPD 5 after IOL for severe pre-eclampsia at 36 weeks. - GBS unknown s/p treatment with Ancef at delivery; Blood Type O+, Rubella immune - Vitals reviewed: BP currently 157/99 - current anti-hypertensive regimen includes labetalol 400mg, PO, BID, Procardia XL, 30mg, and clonidine prn - pressure improved with addition of procardia, although continue to be labile (sys max in last 24 hours 172, emi max 101) - hospitalist following, appreciate recs Continue to monitor - will require close office follow up - After discharge will have [address] Gomez. (2) Severe preeclampsia: - over the last 24 hours highest systolic pressure 172, highest diastolic 101 - BP currently 157/99 - creatinine normal, platelets count normal; ALT elevated to 74 on 05/28 - patient asymptomatic - current anti-hypertensive regimen includes labetalol 400mg, PO, BID, Procardia XL, 30mg, and clonidine 0.1mg prn (last dose 05/28 8:55am) Supervising Physician Co-Signing Physician Notes Resident Physician Supervision Note: I interviewed and examined the patient. Discussed with Dr. Cantu and agree with findings and plan as documented in the note. Any exceptions or clarifications are listed here: [None] Documented By: Marifer Sheridan MD, FACOG Subjective Ambulation: ambulating normally Voiding: no voiding problems Passing Gas:: Yes Diet Tolerance:: regular diet Lochia:: Small Feeding Type:: breast feeding Review of Systems Constitutional: no fever, no chills and no sweats Eyes: no worsening vision Respiratory: no cough and no dyspnea Cardiovascular: no chest pain, no palpitations, no edema and no calf pain Gastrointestinal: no nausea and no vomiting Genitourinary: no dysuria and no urinary frequency Neurologic: + headache(s) (she has had HAs periodically that are releived by Tylenol) Physical Exam Constitutional: WD/WN, vitals as above no acute distress Respiratory: normal respiratory effort, lungs clear to auscultation does not use accessory muscles Auscultation: no crackles, no rales, no rhonchi, no wheezes and no pleural rub Cardiovascular: Rate/Rhythm: regular rate and regular rhythm Heart Sounds: normal S1 and normal S2; no gallop, no murmur and no cardiac rub Extremities: no calf tenderness and no pedal edema Gastrointestinal (Abdomen): Inspection/Auscultation: normal bowel sounds; abdomen not distended Percussion/Palpation: abdomen soft Genitourinary: Uterus: fundus firm, palpable 2 cm below the umbilicus Results & Data Vital Signs (Past 12 Hours) Vital Signs Temp Pulse Resp BP Pulse Ox 05/29/19 04:30 36.4 C L 80 18 157/99 H 97 05/29/19 03:05 80 166/80 H 05/29/19 01:45 156/96 H 05/28/19 23:25 36.6 C 84 18 142/87 H 96 05/28/19 20:15 36.6 C 76 18 159/94 H 97 Resident Activity Tracking Resident Involvement: Resident Care Provided Care Provided: OB Delivery
[2019-05-29] MEDS: LABETALOL HCL 200 MG TAB PO SCH (08:53)
[2019-05-29] MEDS: PRENATAL VITAMIN 1 TAB PO SCH (08:54)
[2019-05-29] MEDS: DOCUSATE SODIUM 100 MG CAP PO SCH (08:54)
[2019-05-29] MEDS: FERROUS SULFATE 325 MG TAB PO SCH (08:55)
[2019-05-29] MEDS ORDERED: NIFEdipine EXTENDED REL 30 MG TABCR PO SCH (09:00)
--- NOTE | 2019-05-29 10:09 | Discharge Summary ---
Date of Service May 29, 2019 Admission HPI Per Admitting Provider The patient is a 28-year-old 1 para 0 with an EDC of 20 June at 36+ weeks gestational age who was admitted for induction for severe preeclampsia. The patient was seen earlier in the day in the office for OB check. She was having an ultrasound done for estimated weight. Patient has a known bicornuate uterus. The ultrasound showed an estimated weight at the 10th percentile. +1 protein was noted at her office visit and a spot urine protein creatinine ratio was greater than 6 g. The patient had preeclamptic labs done which were within normal limits but she presented to labor and delivery for serial blood pressure measurements. While on labor and delivery the patient was having significantly elevated diastolics greater than 105 giving her a diagnosis of preeclampsia with severe features and induction was initiated. Prior to this the patient had had an unremarkable course. Her blood type was O+ antibody negative rubella immune hepatitis B negative she had a normal 1 hour Glucola x2 but did not have a third trimester beta strep culture. OBH: g1 GYNH: h/o CT in past, nl paps, uterine anomaly as noted PMH: anxiety/OCD PSH: wisdom teeth SH: no tob/etoh/drugs FH: kojo anomaly in mother as noted. Discharge Data Consultations 05/23/19 22:36 Consult Anesthesiology Stat 05/27/19 09:43 Consult Hospitalist Routine Hospital Course (1) Severe preeclampsia: Because of the early gestational age the patient received a late Celestone 12 mg IM. She was also started on Ancef 1 g IV for penicillin allergy for unknown GBS status. An attempt was made at placement of a cervical Escudero but profuse vaginal bleeding was noted and the procedure was abandoned. Patient was started on Pitocin per induction protocol. On the morning of delivery delivering physician assumed care for the patient. Cervix was 1 to 2 cm dilated and at that point she had artificial rupture of membranes for clear fluid. Intrauterine pressure catheter was placed and Pitocin was titrated to adequate labor. Because of the preeclampsia with severe features the patient was started on magnesium. The patient progressed into a regular labor pattern. She became uncomfortable anesthesia was consulted and an epidural was placed. Patient progressed to full dilatation. During her labor her tracing was felt to be category 2 with some decrease in variability felt to be secondary to the magnesium. With the beginning of her second stage the patient was an excellent pusher but immediate bradycardia insult resulted with the second stage. This did not resolve in between pushes. Because of the persistent now felt to be category 3 tracing, verbal consent was obtained for a vacuum extraction. Over the next 2 contractions the vertex was brought to the perineum and then the vacuum popped off. Patient was able to delivered spontaneously over a midline episiotomy. Cord was clamped and cut and the baby was taken to the resuscitation stand. Placenta was delivered spontaneously. Inspection of the perineum showed a midline episiotomy, this was repaired with 4-0 Vicryl. Estimated blood loss was 300 cc. Sponge and needle count was correct. The patient received magnesium for 24 hours after delivery. Laboratory values showed therapeutic levels. The patient's blood pressure began to increase after her epidural was discontinued. This required starting antihypertensive medications. The patient was initially started on labetalol 100 mg p.o. twice daily. She was also given clonidine 0.1 mg p.o. every 4 hours PRN elevated systolic and diastolic blood pressures. The labetalol was titrated up over the time the patient was here on . The blood pressure remained extremely labile and a hospitalist consult was obtained. The patient was finally maintained on labetalol 400 mg p.o. twice daily as well as nifedipine XL 30 mg daily. Her diastolics were less than 100 at the time of discharge. The patient bought a blood pressure cuff at home. Nursing confirmed calibration with the blood pressure cuff with the blood pressures we were recording here on labor and delivery. The patient was finally discharged home on day #5. She is going to follow-up in the office in 24 hours for a outpatient blood pressure check. The patient was given the routine discharge instructions for the delivery. All questions were answered of the patient. Coding Diagnoses Severe preeclampsia O14.10
--- NOTE | 2019-05-29 12:29 | Communication Note ---
Date of Service: May 29, 2019 May discharge on Procardia 30mg PO and labetolol 400mg PO BID if BPs remain stable. If begins to increase, could consider increasing tomorrows dose of Procardia to 60mg.
== END 2019-05-29 13:08 | disposition home or self-care (01) | DRG 807 ==
LOC: 4S1 20:31 → OPB 20:31 → 4S1 20:32 → 4S2 05-25 20:49